=== PATIENT | male | born 1985 | race Caucasian/White ===

== ENCOUNTER 2017-10-10 10:41 | Inpatient (IN) | payer OTHER ==
--- NOTE | 2017-10-10 14:08 | HP ---
COWS - Scale Resting Pulse: 0= [place] 80 or Below Sweatin=Flushed/Facial Moisture Restless Observation: 3= Extraneous Movement Pupil Size: 2= Moderately Dilated Bone or Joint Aches: 2= Severe Diffuse Aches Runny Nose/ Eye Tearin= Runny Nose/Eyes GI Upset > 30mins: 3= Vomiting/Diarrhea Tremor Observation: 2= Slight Tremor Visible Yawning Observation: 2= >3x During Session Anxiety or Irritability: 2=Irritable/Anxious Goose Flesh Skin: 0=Smooth Skin COWS Score: 20 CIWA Score - CIWA Score Nausea/Vomitin Muscle Tremors: 3 Anxiety: 3 Agitation: 3 Paroxysmal Sweats: 1-Minimal Palms Moist Orientation: 0-Oriented Tacttile Disturbances: 2-Mild Itch/Numbness/Burn Auditory Disturbances: 2-Mild Harshness/Frighten Visual Disturbances: 2-Mild Sensitivity Headache: 2-Mild CIWA-Ar Total Score: 21 Admission ROS BHS - HPI Chief Complaint: i need help to stop using heroin,alcohol,cocaine and marijuana Allergies/Adverse Reactions: Allergies Allergy/AdvReac Type Severity Reaction Status Date / Time carbamazepine [From Tegretol] Allergy Severe Hives Verified 10/10/17 11:18 History of Present Illness: this 32 years old male with heroin,alcohol,cocaine and marijuana dependence, seeking detox,withdrawal symptom,last detox aci 3 weeks ago,not completed syncope 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 Loss EENT: reports: Tearing, Nose Congestion Respiratory: reports: No Symptoms reported Cardiac: reports: No Symptoms Reported GI: reports: Diarrhea, Nausea, Vomiting, Abdominal cramping : reports: No Symptoms Reported Musculoskeletal: reports: Back Pain, Joint Pain, Muscle Pain, Joint Stiffness Integumentary: reports: Dryness Neuro: reports: Headache, Tremors Endocrine: reports: No Symptoms Reported Hematology: reports: No Symptoms Reported Psychiatric: reports: No Sypmtoms Reported, Judgement Intact, Mood/Affect Appropiate, Orientated x3 (insomnia), Agitated, Anxious, Depressed Patient History - Patient Medical History Hx Anemia: No Hx Asthma: No Hx Chronic Obstructive Pulmonary Disease (COPD): No Hx Cancer: No Hx Cardiac Disorders: No Hx Congestive Heart Failure: No Hx Hypertension: No Hx Hypercholesterolemia: No Hx Pacemaker: No HX Cerebrovascular Accident: No Hx Seizures: No Hx Dementia: No Hx Diabetes: No Hx Gastrointestinal Disorders: No Hx Liver Disease: No Hx Genitourinary Disorders: No Hx Sexually Transmitted Disorders: No Hx Renal Disease (ESRD): No Hx Thyroid Disease: No Hx Human Immunodeficiency Virus (HIV): No (NEGATIVE HX last 02/01 ) Hx Hepatitis C: No Hx Depression: Yes (anxiety,depression,insomnia) Hx Suicide Attempt: No Hx Bipolar Disorder: No Hx Schizophrenia: No Other Medical History: no suicidal,no homicidal - Patient Surgical History Past Surgical History: No Hx Neurologic Surgery: No Hx Cataract Extraction: No Hx Cardiac Surgery: No Hx Lung Surgery: No Hx Breast Surgery: No Hx Breast Biopsy: No Hx Abdominal Surgery: No Hx Appendectomy: No Hx Cholecystectomy: No Hx Genitourinary Surgery: No Hx Section: No Hx Orthopedic Surgery: No Anesthesia Reaction: No - PPD History Previous Implant?: Yes Documented Results: Negative w/o proof Implanted On Prior R Admission?: No Date: 11/15/13 Results: 0 mm PPD to be Administered?: Yes - Smoking Cessation Smoking history: Current every day smoker Have you smoked in the past 12 months: Yes Aproximately how many cigarettes per day: 2 Cigars Per Day: 0 Hx Chewing Tobacco Use: No Initiated information on smoking cessation: Yes 'Breaking Loose' booklet given: 10/10/17 - Substance & Tx. History Hx Alcohol Use: Yes Hx Substance Use: Yes Substance Use Type: Alcohol, Cocaine, Heroin, Marijuana - Substances Abused Heroin Route: Injection Frequency: Daily Amount used: 20 BAGS Age of first use: 27 Date of Last Use: 10/09/17 Cocaine Route: Inhalation Frequency: 1-2 times per week Amount used: 2 BAGS Age of first use: 25 Date of Last Use: 10/08/17 Alcohol Route: Oral Frequency: Daily Amount used: 1-2 PINTS LIQUOR Age of first use: 21 Date of Last Use: 10/08/17 Marijuana/Hashish Route: Smoking Frequency: 1-3 times last 30 days Amount used: 20$ Age of first use: 15 Date of Last Use: 10/03/17 Family Disease History - Family Disease History Family Disease History: Diabetes: Grandparent (GM), Other: Father (DSA-RECOVERY) , Mother (HTN), Brother (DSA-RECOVERY) Admission Physical Exam [facility] - Vital Signs Vital Signs: Vital Signs - 24 hr 10/10/17 10:56 Temperature 96 F L Pulse Rate 73 Respiratory 18 Rate Blood Pressure 131/46 - Physical General Appearance: Yes: Moderate Distress, Tremorous, Sweating HEENTM: Yes: Normal ENT Inspection, CHRISTEN, Pharynx Normal Respiratory: Yes: Lungs Clear, Normal Breath Sounds, No Respiratory Distress Neck: Yes: Within Normal Limits, Supple, Trachea in good position Breast: Yes: Within Normal Limits Cardiology: Yes: Within Normal Limits, Regular Rhythm, Regular Rate, S1, S2 Abdominal: Yes: Within Normal Limits, Normal Bowel Sounds, Non Tender, Flat, Soft Genitourinary: Yes: Within Normal Limits Back: Yes: Within Normal Limits, Normal Inspection, Muscle Spasm Musculoskeletal: Yes: full range of Motion, Back pain, Joint Stiffness, Muscle Pain Extremities: Yes: Within Normal Limits, Normal Range of Motion, Tremors Neurological: Yes: knitting demonstrator II-XII NML intact, Alert, Motor Strength 5/5 Integumentary: Yes: Dry, Track Suggs (cellulitis of left elbow,erythema) - Diagnostic (1) Opioid dependence with withdrawal Current Visit: Yes Status: Acute (2) Alcohol dependence with uncomplicated withdrawal Current Visit: Yes Status: Acute (3) Syncope Current Visit: No Status: Acute (4) Weight decreased Current Visit: No Status: Acute (5) Cocaine dependence Current Visit: No Status: Chronic (6) Cannabis dependence Current Visit: Yes Status: Acute (7) Cellulitis Current Visit: Yes Status: Acute (8) Insomnia secondary to depression with anxiety Current Visit: No Status: Acute (9) IV drug user Current Visit: Yes Status: Acute (10) Dehydration Current Visit: Yes Status: Acute Cleared for Admission [facility] - Detox or Rehab [facility] Level of Care: Medically Managed Detox Regimen/Protocol: Methadone/Librium S Breath Alcohol Content Breath Alcohol Content: 0 Urine Drug Screen - Results Drug Screen Negative: No Urine Drug Screen Results: THC-Marijuana, SILVIO-Cocaine, OPI-Opiates
[2017-10-10] MEDS ORDERED: MAG HYDROX/AL HYDROX/SIMETH 30 ML UNIT-DOSE CUP PO PRN (14:27)
[2017-10-10] MEDS ORDERED: chlordiazePOXIDE HCL 25 MG CAPSULE PO PRN (14:27)
[2017-10-10] MEDS ORDERED: P-EPHED 60MG/TRIPROLIDI 2.5MG TABLET PO PRN (14:27)
[2017-10-10] MEDS ORDERED: guaiFENesin/D-METHORPHAN HB 10 ML UNIT-DOSE CUPS PO PRN (14:27)
[2017-10-10] MEDS ORDERED: LOPERAMIDE HCL 2 MG CAPSULE PO PRN (14:27)
[2017-10-10] MEDS ORDERED: MENTHOL/PHENOL 1 EACH UD MM PRN (14:27)
[2017-10-10] MEDS ORDERED: MAGNESIUM HYDROX 2400MG/30ML ORAL SUSPENSION 30 ML CUP PO PRN (14:27)
[2017-10-10] MEDS ORDERED: MAGNESIUM CITRATE 300 ML BOTTLE PO PRN (14:27)
[2017-10-10] MEDS ORDERED: ACETAMINOPHEN 325 MG TABLET (FP) PO PRN (14:27)
[2017-10-10] MEDS ORDERED: hydrOXYzine PAMOATE 50 MG CAPSULE (FP) PO PRN (14:27)
[2017-10-10] MEDS ORDERED: CYCLOBENZAPRINE HCL 10 MG TABLET (FP) PO PRN (14:33)
[2017-10-10] MEDS ORDERED: METHADONE HCL 10 MG TABLET (FOR DETOX USE ONLY) PO ONE ×2 (15:15→23:00)
[2017-10-10] MEDS ORDERED: chlordiazePOXIDE HCL 25 MG CAPSULE PO ONE (15:15)
[2017-10-10] MEDS: CEPHALEXIN MONOHYDRATE 500 MG CAPSULE (UD) PO SCH (17:37)
[2017-10-10] MEDS: IBUPROFEN 400 MG TABLET (FP) PO PRN (17:37)
[2017-10-10] MEDS: chlordiazePOXIDE HCL 25 MG CAPSULE PO SCH ×2 (17:38→22:13)
[2017-10-10 21:53] LABS: URINE APPEARANCE CLOUDY; URINE BILIRUBIN NEGATIVE (<2.0 mg/dL); URINE BLOOD NEGATIVE (NEGATIVE); URINE COLOR DKYELLOW; URINE GLUCOSE (UA) NEGATIVE (NEGATIVE); URINE KETONE TRACE (NEGATIVE); URINE LEUK ESTERASE NEGATIVE (NEGATIVE); URINE NITRITE NEGATIVE (NEGATIVE); URINE PROTEIN NEGATIVE (NEGATIVE); URINE UROBILINOGEN 4.0 E.U/dl mg/dL (0.2-1.0)
[2017-10-10] MEDS ORDERED: MELATONIN 5 MG TABLETS PO PRN (22:00)
[2017-10-10] MEDS: GABAPENTIN 400 MG CAPSULE (FP) PO SCH (22:11)
[2017-10-10] MEDS: cloNIDine HCL 0.1 MG TABLET PO SCH (22:11)
[2017-10-10] MEDS: THIAMINE HCL 100 MG TABLET (FP) PO SCH (22:11)
[2017-10-10] MEDS: BACITRACIN 0.9 GM PACKET TP SCH (23:51)
[2017-10-11] MEDS: CEPHALEXIN MONOHYDRATE 500 MG CAPSULE (UD) PO SCH ×5 (01:16→23:00)
[2017-10-11] MEDS: chlordiazePOXIDE HCL 25 MG CAPSULE PO SCH ×5 (06:04→22:06)
[2017-10-11] MEDS: IBUPROFEN 400 MG TABLET (FP) PO PRN ×2 (08:47→17:05)
[2017-10-11] MEDS: METHOCARBAMOL 500 MG TABLET PO PRN (08:47)
--- NOTE | 2017-10-11 08:47 | CONSULT ---
[facility] Psychiatric Consult - Data Date of interview: 10/11/17 Admission source: [facility] Identifying data: This is 32 years old male, single, unemployed, living at [facility], on [place], with heroin,alcohol,cocaine and marijuana dependence,seeking detox, reporting withdrawal symptoms,with history of last detox on about 3 weeks ago, was not completed Substance Abuse History: - Smoking Cessation. Smoking history: Current every day smoker. Have you smoked in the past 12 months: Yes. Aproximately how many cigarettes per day: 2. Cigars Per Day: 0. Hx Chewing Tobacco Use: No. Initiated information on smoking cessation: Yes. 'Breaking Loose' booklet given : 10/10/17. - Substance & Tx. History. Hx Alcohol Use: Yes. Hx Substance Use : Yes. Substance Use Type: Alcohol, Cocaine, Heroin, Marijuana. - Substances Abused. Heroin. Route: Injection. Frequency: Daily. Amount used: 20 BAGS. Age of first use: 27. Date of Last Use: 10/09/17. Cocaine. Route: Inhalation. Frequency: 1-2 times per week. Amount used: 2 BAGS. Age of first use: 25. Date of Last Use: 10/08/17. Alcohol. Route: Oral. Frequency: Daily. Amount used: 1-2 PINTS LIQUOR. Age of first use: 21. Date of Last Use : 10/08/17. Marijuana/Hashish. Route: Smoking. Frequency: 1-3 times last 30 days. Amount used: 20$. Age of first use: 15. Date of Last Use: 10/03/17 Medical History: Syncope, Neuropathy, wWeight loss history, Cellulitis history Psychiatric History: Denies past psychiatric history, refusing pharmacological intervention. Physical/Sexual Abuse/Trauma History: Deniues Additional Comment: Observation. Detox Unit Care Protocol Mental Status Exam - Mental Status Exam Alert and Oriented to: Person Cognitive Function: Fair Patient Appearance: Unkempt Mood: Sad Affect: Flat Patient Behavior: Sedated Speech Pattern: Delayed Voice Loudness: Mildly Soft/Quiet Thought Process: Circumstantial Thought Disorder: Being Controlled Hallucinations: Denies Suicidal Ideation: Denies Homicidal Ideation: Denies Insight/Judgement: Fair Sleep: Difficulty falling asleep Appetite: Weight loss Muscle strength/Tone: Mild Hypotonicity Gait/Station: Shuffling Additional Comments: Observation. Detox Unit Care Protocol
[2017-10-11] MEDS ORDERED: METHADONE HCL 10 MG TABLET (FOR DETOX USE ONLY) PO SCH (10:00)
[2017-10-11 10:19] LABS: HEMATOCRIT 43.3 % (35.4-49); HEMOGLOBIN 14.7 GM/dL (11.7-16.9); MCH 30.6 pg (25.7-33.7); MCHC 33.9 g/dl (32.0-35.9); MEAN CELL VOLUME 90.2 fl (80-96); PLATELET COUNT 237 K/MM3 (134-434); RDW 13.2 % (11.9-15.9); WHITE BLOOD COUNT 6.2 K/mm3 (4.0-10.0)
[2017-10-11 10:44] LABS: ALBUMIN 3.4 g/dl (3.4-5.0); ANION GAP 8 (8-16); BILIRUBIN,TOTAL 0.3 mg/dL (0.2-1.0); BLOOD UREA NITROGEN 10 mg/dL (7-18); CALCIUM 8.4 mg/dL (8.5-10.1); CHLORIDE 106 mmol/L (98-107); CO2 28 mmol/L (21-32); CREATININE 0.9 mg/dL (0.7-1.3); GLUCOSE,RANDOM 91 mg/dL (74-106); POTASSIUM 4.2 mmol/L (3.5-5.1); SGOT/AST 65 U/L (15-37); SODIUM 142 mmol/L (136-145); TOT PROT 6.6 g/dl (6.4-8.2)
[2017-10-11 10:48] LABS: ALK PHOS 66 U/L (45-117); SGPT/ALT 102 U/L (12-78)
[2017-10-11] MEDS: BACITRACIN 0.9 GM PACKET TP SCH ×2 (10:49→22:06)
[2017-10-11] MEDS: GABAPENTIN 400 MG CAPSULE (FP) PO SCH ×2 (10:49→22:06)
[2017-10-11] MEDS: PRENATAL VITAMINS W/ FOLIC ACID TABLET (FP) PO SCH (10:50)
[2017-10-11] MEDS: cloNIDine HCL 0.1 MG TABLET PO SCH ×2 (10:50→22:06)
--- NOTE | 2017-10-11 10:53 | PN ---
S CIWA - CIWA Score Nausea/Vomitin Muscle Tremors: 3 Anxiety: 3 Agitation: 2 Paroxysmal Sweats: 1-Minimal Palms Moist Orientation: 0-Oriented Tacttile Disturbances: 1-Very Mild Itch/Numbness Auditory Disturbances: 1-Very Mild Visual Disturbances: 0-None Headache: 2-Mild CIWA-Ar Total Score: 16 BHS COWS - Scale Resting Pulse: 0= [place] 80 or Below Sweatin= Chills/Flushing Restless Observation: 3= Extraneous Movement Pupil Size: 1= Pupils >than Normal Bone or Joint Aches: 2= Severe Diffuse Aches Runny Nose/ Eye Tearin= Runny Nose/Eyes GI Upset > 30mins: 3= Vomiting/Diarrhea Tremor Observation of Outstretched Hands: 2= Slight Tremor Visible Yawning Observation: 1= 1-2x During Session Anxiety or Irritability: 2=Irritable/Anxious Goose Flesh Skin: 0=Smooth Skin COWS Score: 17 BHS Progress Note (SOAP) Subjective: ALERT,IRRITABLE,ANXIOUS,INTERRUPTED SLEEP,TREMOR,PAIN IN THE BDOY AND ABCK Objective: 10/11/17 10:50 Vital Signs Temperature 97.7 F 10/11/17 10:04 Pulse Rate 76 10/11/17 10:04 Respiratory Rate 20 10/11/17 10:04 Blood Pressure 136/62 10/11/17 10:04 O2 Sat by Pulse Oximetry (%) EKG NSR,WITH SINUS ARRHYTHMIA INVERTED T IN I AND AVL Laboratory Last Values WBC 6.2 K/mm3 (4.0-10.0) 10/11/17 05:50 RBC 4.80 M/mm3 (4.00-5.60) 10/11/17 05:50 Hgb 14.7 GM/dL (11.7-16.9) D 10/11/17 05:50 Hct 43.3 % (35.4-49) 10/11/17 05:50 MCV 90.2 fl (80-96) 10/11/17 05:50 MCH 30.6 pg (25.7-33.7) 10/11/17 05:50 MCHC 33.9 g/dl (32.0-35.9) 10/11/17 05:50 RDW 13.2 % (11.9-15.9) 10/11/17 05:50 Plt Count 237 K/MM3 (134-434) 10/11/17 05:50 MPV 10.0 fl (7.5-11.1) 10/11/17 05:50 Sodium 142 mmol/L (136-145) 10/11/17 05:50 Potassium 4.2 mmol/L (3.5-5.1) 10/11/17 05:50 Chloride 106 mmol/L (98-107) 10/11/17 05:50 Carbon Dioxide 28 mmol/L (21-32) 10/11/17 05:50 Anion Gap 8 (8-16) 10/11/17 05:50 BUN 10 mg/dL (7-18) D 10/11/17 05:50 Creatinine 0.9 mg/dL (0.7-1.3) 10/11/17 05:50 Creat Clearance w eGFR > 60 (>60) 10/11/17 05:50 Random Glucose 91 mg/dL (74-106) 10/11/17 05:50 Calcium 8.4 mg/dL (8.5-10.1) L 10/11/17 05:50 Total Bilirubin 0.3 mg/dL (0.2-1.0) D 10/11/17 05:50 AST 65 U/L (15-37) H D 10/11/17 05:50 ALT 102 U/L (12-78) H D 10/11/17 05:50 Alkaline Phosphatase 66 U/L (45-117) 10/11/17 05:50 Total Protein 6.6 g/dl (6.4-8.2) 10/11/17 05:50 Albumin 3.4 g/dl (3.4-5.0) 10/11/17 05:50 Urine Color Dkyellow 10/10/17 21:45 Urine Appearance Cloudy 10/10/17 21:45 Urine pH 7.0 (5.0-8.0) D 10/10/17 21:45 Ur Specific [place] 1.025 (1.001-1.035) 10/10/17 21:45 Urine Protein Negative (NEGATIVE) 10/10/17 21:45 Urine Glucose (UA) Negative (NEGATIVE) 10/10/17 21:45 Urine Ketones Trace (NEGATIVE) H 10/10/17 21:45 Urine Blood Negative (NEGATIVE) 10/10/17 21:45 Urine Nitrite Negative (NEGATIVE) 10/10/17 21:45 Urine Bilirubin Negative (<2.0 mg/dL) 10/10/17 21:45 Urine Urobilinogen 4.0 e.u/dl mg/dL (0.2-1.0) 10/10/17 21:45 Ur Leukocyte Esterase Negative (NEGATIVE) 10/10/17 21:45 10/11/17 10:52 RPR PENDING Assessment: 10/11/17 10:52 WITHDRAWAL SYMPTOM Plan: CONTINUE DETOX
[2017-10-11] MEDS: FLUTICASONE PROP 0.05% 16 GM NASAL SPRAY NS SCH (12:13)
[2017-10-11 12:42] LABS: RPR REACTIVE 1:1 (NONREACTIVE)
--- NOTE | 2017-10-11 13:00 | EKG ---
Test Reason : Blood Pressure : / mmHG Vent. Rate : 067 BPM Atrial Rate : 067 BPM P-R Int : 108 ms QRS Dur : 084 ms QT Int : 448 ms P-R-T Axes : 000 142 140 degrees QTc Int : 473 ms SINUS RHYTHM WITH SINUS ARRHYTHMIA WITH SHORT [place] LEFT POSTERIOR FASCICULAR BLOCK NONSPECIFIC ST ABNORMALITY ABNORMAL ECG NO PREVIOUS ECGS AVAILABLE Confirmed by BECKI ARELLANO MD ([id number]) on 10/11/2017 1:00:29 PM Referred By: Confirmed By:BECKI ARELLANO MD
[2017-10-11] MEDS: NICOTINE 21 MG/24 HOURS TOPICAL PATCH TD SCH (14:41)
[2017-10-11] MEDS: NICOTINE POLACRILEX 2 MG GUM BUC PRN ×2 (14:41→23:02)
[2017-10-11 14:58] LABS: TREPONEMA ANTIBODY NON REACTIVE (NONREACTIVE)
[2017-10-11] MEDS: THIAMINE HCL 100 MG TABLET (FP) PO SCH (22:06)
[2017-10-12] MEDS: chlordiazePOXIDE HCL 25 MG CAPSULE PO SCH ×2 (05:53→10:11)
[2017-10-12] MEDS: CEPHALEXIN MONOHYDRATE 500 MG CAPSULE (UD) PO SCH ×2 (05:53→12:25)
[2017-10-12] MEDS: FLUTICASONE PROP 0.05% 16 GM NASAL SPRAY NS SCH (09:18)
[2017-10-12] MEDS ORDERED: METHADONE HCL 5 MG TABLET (FOR DETOX USE ONLY) PO SCH (10:00)
[2017-10-12] MEDS: PRENATAL VITAMINS W/ FOLIC ACID TABLET (FP) PO SCH (10:10)
[2017-10-12] MEDS: BACITRACIN 0.9 GM PACKET TP SCH (10:11)
[2017-10-12] MEDS: cloNIDine HCL 0.1 MG TABLET PO SCH (10:11)
[2017-10-12] MEDS: GABAPENTIN 400 MG CAPSULE (FP) PO SCH (10:11)
[2017-10-12] MEDS: NICOTINE 21 MG/24 HOURS TOPICAL PATCH TD SCH (10:13)
[2017-10-12] MEDS: IBUPROFEN 400 MG TABLET (FP) PO PRN (10:14)
[2017-10-12] MEDS: NICOTINE POLACRILEX 2 MG GUM BUC PRN (10:15)
[2017-10-12] MEDS: METHOCARBAMOL 500 MG TABLET PO PRN (10:26)
--- NOTE | 2017-10-12 11:32 | PN ---
S CIWA - CIWA Score Nausea/Vomitin Muscle Tremors: 3 Anxiety: 2 Agitation: 2 Paroxysmal Sweats: 1-Minimal Palms Moist Orientation: 0-Oriented Tacttile Disturbances: 1-Very Mild Itch/Numbness Auditory Disturbances: 1-Very Mild Visual Disturbances: 0-None Headache: 2-Mild CIWA-Ar Total Score: 15 BHS COWS - Scale Resting Pulse: 1= [place] 81-100 Sweatin= Chills/Flushing Restless Observation: 3= Extraneous Movement Pupil Size: 1= Pupils >than Normal Bone or Joint Aches: 2= Severe Diffuse Aches Runny Nose/ Eye Tearin= Nasal Congestion GI Upset > 30mins: 2= Nausea/Diarrhea Tremor Observation of Outstretched Hands: 2= Slight Tremor Visible Yawning Observation: 1= 1-2x During Session Anxiety or Irritability: 2=Irritable/Anxious Goose Flesh Skin: 0=Smooth Skin COWS Score: 16 BHS Progress Note (SOAP) Subjective: ALERT,IRRITABLE,ANXIOUS,INTERRUPTED SLEEP,TREMOR,PAIN IN THE BODY AND BACK Objective: 10/12/17 11:30 Vital Signs Temperature 96.4 F L 10/12/17 10:00 Pulse Rate 81 10/12/17 10:00 Respiratory Rate 18 10/12/17 10:00 Blood Pressure 133/59 10/12/17 10:00 O2 Sat by Pulse Oximetry (%) Laboratory Last Values WBC 6.2 K/mm3 (4.0-10.0) 10/11/17 05:50 RBC 4.80 M/mm3 (4.00-5.60) 10/11/17 05:50 Hgb 14.7 GM/dL (11.7-16.9) D 10/11/17 05:50 Hct 43.3 % (35.4-49) 10/11/17 05:50 MCV 90.2 fl (80-96) 10/11/17 05:50 MCH 30.6 pg (25.7-33.7) 10/11/17 05:50 MCHC 33.9 g/dl (32.0-35.9) 10/11/17 05:50 RDW 13.2 % (11.9-15.9) 10/11/17 05:50 Plt Count 237 K/MM3 (134-434) 10/11/17 05:50 MPV 10.0 fl (7.5-11.1) 10/11/17 05:50 Sodium 142 mmol/L (136-145) 10/11/17 05:50 Potassium 4.2 mmol/L (3.5-5.1) 10/11/17 05:50 Chloride 106 mmol/L (98-107) 10/11/17 05:50 Carbon Dioxide 28 mmol/L (21-32) 10/11/17 05:50 Anion Gap 8 (8-16) 10/11/17 05:50 BUN 10 mg/dL (7-18) D 10/11/17 05:50 Creatinine 0.9 mg/dL (0.7-1.3) 10/11/17 05:50 Creat Clearance w eGFR > 60 (>60) 10/11/17 05:50 Random Glucose 91 mg/dL (74-106) 10/11/17 05:50 Calcium 8.4 mg/dL (8.5-10.1) L 10/11/17 05:50 Total Bilirubin 0.3 mg/dL (0.2-1.0) D 10/11/17 05:50 AST 65 U/L (15-37) H D 10/11/17 05:50 ALT 102 U/L (12-78) H D 10/11/17 05:50 Alkaline Phosphatase 66 U/L (45-117) 10/11/17 05:50 Total Protein 6.6 g/dl (6.4-8.2) 10/11/17 05:50 Albumin 3.4 g/dl (3.4-5.0) 10/11/17 05:50 Urine Color Dkyellow 10/10/17 21:45 Urine Appearance Cloudy 10/10/17 21:45 Urine pH 7.0 (5.0-8.0) D 10/10/17 21:45 Ur Specific [place] 1.025 (1.001-1.035) 10/10/17 21:45 Urine Protein Negative (NEGATIVE) 10/10/17 21:45 Urine Glucose (UA) Negative (NEGATIVE) 10/10/17 21:45 Urine Ketones Trace (NEGATIVE) H 10/10/17 21:45 Urine Blood Negative (NEGATIVE) 10/10/17 21:45 Urine Nitrite Negative (NEGATIVE) 10/10/17 21:45 Urine Bilirubin Negative (<2.0 mg/dL) 10/10/17 21:45 Urine Urobilinogen 4.0 e.u/dl mg/dL (0.2-1.0) 10/10/17 21:45 Ur Leukocyte Esterase Negative (NEGATIVE) 10/10/17 21:45 RPR Titer Reactive 1:1 (NONREACTIVE) H 10/11/17 05:50 T.pallidum Ab (MHA) Non reactive (NONREACTIVE) 10/11/17 05:50 PATIENT HAS HISTORY OF SYPHILIS BEFORE Assessment: 10/12/17 11:31 WITHDRAWAL SYMPTOM Plan: CONTINUE DETOX
[2017-10-12 14:11] VITALS: BP 94/56; PULSE 99; TEMP 97.7
--- NOTE | 2017-10-12 15:08 | PN ---
[facility] Progress Note Note: PATIENT DID NOT WANT TO COMPLETE TREATMENT,SIGNED RELEASE AMA,SEEN BY COUNSELOR, DID NOT WANT TO WAIT
--- NOTE | 2017-10-12 15:13 | DS ---
[facility] Detox Discharge Summary Admission Date: 10/10/17 Discharge Date: 10/12/17 - History Present History: Alcohol Dependence, Cannabis Dependence, Cocaine Dependence, Opioid Dependence Additional Comments: PATIENT DID NOT WANT TO COMPLETE TREATMENT,SIGNED RELEASE AMA,DID NOT WANT TO WAIT - Physical Exam Results Vital Signs: Vital Signs Temperature 97.7 F 10/12/17 14:11 Pulse Rate 99 H 10/12/17 14:11 Respiratory Rate 16 10/12/17 14:11 Blood Pressure 94/56 10/12/17 14:11 O2 Sat by Pulse Oximetry (%) Pertinent Admission Physical Exam Findings: WITHDRAWAL SIGNS AND SYMPTOM Vital Signs Temperature 97.7 F 10/12/17 14:11 Pulse Rate 99 H 10/12/17 14:11 Respiratory Rate 16 10/12/17 14:11 Blood Pressure 94/56 10/12/17 14:11 O2 Sat by Pulse Oximetry (%) Laboratory Last Values WBC 6.2 K/mm3 (4.0-10.0) 10/11/17 05:50 RBC 4.80 M/mm3 (4.00-5.60) 10/11/17 05:50 Hgb 14.7 GM/dL (11.7-16.9) D 10/11/17 05:50 Hct 43.3 % (35.4-49) 10/11/17 05:50 MCV 90.2 fl (80-96) 10/11/17 05:50 MCH 30.6 pg (25.7-33.7) 10/11/17 05:50 MCHC 33.9 g/dl (32.0-35.9) 10/11/17 05:50 RDW 13.2 % (11.9-15.9) 10/11/17 05:50 Plt Count 237 K/MM3 (134-434) 10/11/17 05:50 MPV 10.0 fl (7.5-11.1) 10/11/17 05:50 Sodium 142 mmol/L (136-145) 10/11/17 05:50 Potassium 4.2 mmol/L (3.5-5.1) 10/11/17 05:50 Chloride 106 mmol/L (98-107) 10/11/17 05:50 Carbon Dioxide 28 mmol/L (21-32) 10/11/17 05:50 Anion Gap 8 (8-16) 10/11/17 05:50 BUN 10 mg/dL (7-18) D 10/11/17 05:50 Creatinine 0.9 mg/dL (0.7-1.3) 10/11/17 05:50 Creat Clearance w eGFR > 60 (>60) 10/11/17 05:50 Random Glucose 91 mg/dL (74-106) 10/11/17 05:50 Calcium 8.4 mg/dL (8.5-10.1) L 10/11/17 05:50 Total Bilirubin 0.3 mg/dL (0.2-1.0) D 10/11/17 05:50 AST 65 U/L (15-37) H D 10/11/17 05:50 ALT 102 U/L (12-78) H D 10/11/17 05:50 Alkaline Phosphatase 66 U/L (45-117) 10/11/17 05:50 Total Protein 6.6 g/dl (6.4-8.2) 10/11/17 05:50 Albumin 3.4 g/dl (3.4-5.0) 10/11/17 05:50 Urine Color Dkyellow 10/10/17 21:45 Urine Appearance Cloudy 10/10/17 21:45 Urine pH 7.0 (5.0-8.0) D 10/10/17 21:45 Ur Specific [place] 1.025 (1.001-1.035) 10/10/17 21:45 Urine Protein Negative (NEGATIVE) 10/10/17 21:45 Urine Glucose (UA) Negative (NEGATIVE) 10/10/17 21:45 Urine Ketones Trace (NEGATIVE) H 10/10/17 21:45 Urine Blood Negative (NEGATIVE) 10/10/17 21:45 Urine Nitrite Negative (NEGATIVE) 10/10/17 21:45 Urine Bilirubin Negative (<2.0 mg/dL) 10/10/17 21:45 Urine Urobilinogen 4.0 e.u/dl mg/dL (0.2-1.0) 10/10/17 21:45 Ur Leukocyte Esterase Negative (NEGATIVE) 10/10/17 21:45 RPR Titer Reactive 1:1 (NONREACTIVE) H 10/11/17 05:50 T.pallidum Ab (MHA) Non reactive (NONREACTIVE) 10/11/17 05:50 - Medication Discharge Medications: Ambulatory Orders Gabapentin [Neurontin] 800 mg PO BID 05/25/14 - Diagnosis (1) Opioid dependence with withdrawal Current Visit: Yes Status: Acute (2) Alcohol dependence with uncomplicated withdrawal Current Visit: Yes Status: Acute (3) Syncope Current Visit: No Status: Acute (4) Weight decreased Current Visit: No Status: Acute (5) Cocaine dependence Current Visit: No Status: Chronic (6) Cannabis dependence Current Visit: Yes Status: Acute (7) Cellulitis Current Visit: Yes Status: Acute Qualifiers: Site of cellulitis of extremity: upper extremity Laterality: left (8) Insomnia secondary to depression with anxiety Current Visit: No Status: Acute (9) IV drug user Current Visit: Yes Status: Acute (10) Dehydration Current Visit: Yes Status: Acute - AMA Did Patient Leave Against Medical Advice: Yes
[2017-10-12] MEDS ORDERED: chlordiazePOXIDE 5 MG CAPSULE PO SCH (17:00)
[2017-10-12] MEDS ORDERED: TOLNAFTATE 1% CREAM 15 GM TUBE TP SCH (22:00)
[2017-10-13] MEDS ORDERED: chlordiazePOXIDE HCL 10 MG CAPSULE PO SCH (17:00)
[2017-10-14] MEDS ORDERED: METHADONE HCL 10 MG TABLET (FOR DETOX USE ONLY) PO SCH (10:00)
[2017-10-15] MEDS ORDERED: METHADONE HCL 5 MG TABLET (FOR DETOX USE ONLY) PO SCH (06:00)
== END 2017-10-12 03:20 | disposition left against medical advice (07) | DRG 770 ==
LOC: YASAS 10:41 → Y6N 14:49
PROVIDERS: ADMIT Internal Medicine; ATTEND Internal Medicine
PROC: HZ2ZZZZ Detoxification Services for Substance Abuse Treatment (ICD-10-PCS; principal; 2017-10-10)
DX: F10.230 Alcohol dependence with withdrawal, uncomplicated (principal); F11.23 Opioid dependence with withdrawal; F14.20 Cocaine dependence, uncomplicated; F12.20 Cannabis dependence, uncomplicated; F17.210 Nicotine dependence, cigarettes, uncomplicated; F32.9 Major depressive disorder, single episode, unspecified; F41.9 Anxiety disorder, unspecified; F51.05 Insomnia due to other mental disorder; E86.0 Dehydration; G62.9 Polyneuropathy, unspecified; G47.00 Insomnia, unspecified; R55 Syncope and collapse
CPT/HCPCS: 36415; 80053; 81003; 85027; 86593; 86780; 93005; 93010; J0735

== ENCOUNTER 2018-09-09 14:05 | Inpatient (IN) | payer OTHER ==
[2018-09-09 17:06] VITALS: BMI 21.1
--- NOTE | 2018-09-09 21:30 | HP ---
"CIWA Score Nausea/Vomitin Muscle Tremors: 4-Moderate,w/Arms Extend Anxiety: 1-Mildly Anxious Agitation: 1-Slight > Activity Paroxysmal Sweats: 3 (Increased facial moisture) Orientation: 1-Uncertain about Date Tacttile Disturbances: 0-None Auditory Disturbances: 0-None Visual Disturbances: 0-None Headache: 0-None Present CIWA-Ar Total Score: 13 - Admission Criteria OAS Guidelines: Admission for Medically Managed Detox: Requires at least one of the followin. CIWA greater than 12 2. Seizures within the past 24 hours 3. Delirium tremens within the past 24 hours 4. Hallucinations within the past 24 hours 5. Acute intervention needed for co occurring medical disorder 6. Acute intervention needed for co occurring psychiatric disorder 7. Severe withdrawal that cannot be handled at a lower level of care (continued vomiting, continued diarrhea, abnormal vital signs) requiring intravenous medication and/or fluids 8. Patient presents the following: CIWA greater than 12 Admission Criteria Met: Admission criteria met Admission ROS [facility] Chief Complaint: Here with xanax, klonopin, opioid withdrawal. Allergies/Adverse Reactions: Allergies Allergy/AdvReac Type Severity Reaction Status Date / Time carbamazepine [From Tegretol] Allergy Severe Hives Verified 09/09/18 22:37 History of Present Illness: Here for detox. I need to get clean. Heroin use began at age 26. IV use. Denies sharing needles or works. Currently on [facility] MMTP. Methadone dose is 130 mg PO daily. States last medicated 09/09/18. Stae has been o program One and a half months. Cocaine use began at age 25. Xanax/Klonopin use began at age [age] Marijuana use began at age 13. Alcohol use began at age 22. Nicotine use began at age 18. Hx: blackouts. Overdoses - states last 4 days prior to admission. Has Narcan kit at home. Denies seizures. PMHx: Intermittent SOB, neuropathic arthritis pain in back and legs MHHx: Anxiety, depression, insomnia, occ hears voices. Denies thoughts of harming self or others. States was on Wellbutrin - states last took about 1-2 weeks ago. The Drug Utilization Report below displays all of the controlled substance prescriptions, if any, that your patient has filled in the last twelve months. The information displayed on this report is compiled from pharmacy submissions to the Department, and accurately reflects the information as submitted by the pharmacies. This report was requested by: Nava Ruby | Reference #: [id number] There are no results for the search terms that you entered. Exam Limitations: No Limitations - Ebola screening Have you traveled outside of the country in the last 21 days: No Have you had contact with anyone from an Ebola affected area: No Have you been sick,other than usual withdrawal symptoms: No Do you have a fever: No - Review of Systems Constitutional: Chills, Diaphoresis, Changes in sleep (Difficulty falling and staying asleep - used to take Ambien) EENT: reports: Nose Congestion Respiratory: reports: Shortness of Breath (Intermittent - used someone elses MDI 2-3 months ago.) Cardiac: reports: No Symptoms Reported GI: reports: Nausea, Vomiting : reports: No Symptoms Reported Musculoskeletal: reports: Back Pain (Low back pain - intermittent x 1 year - states relieved w/ Mobic 7.5 mg. No pain at this time.) Integumentary: reports: No Symptoms Reported Neuro: reports: Tremors Endocrine: reports: Increased Thirst Hematology: reports: No Symptoms Reported Psychiatric: reports: Judgement Intact, Orientated x3 (Missed day by one), Agitated, Anxious, Depressed (Denies thoughts of harming self or others.) Patient History - Patient Medical History Hx Anemia: No Hx Asthma: No Hx Chronic Obstructive Pulmonary Disease (COPD): No Hx Cancer: No Hx Cardiac Disorders: No Hx Congestive Heart Failure: No Hx Hypertension: No Hx Hypercholesterolemia: No Hx Pacemaker: No HX Cerebrovascular Accident: No Hx Seizures: No Hx Dementia: No Hx Diabetes: No Hx Gastrointestinal Disorders: No Hx Liver Disease: No Hx Genitourinary Disorders: No Hx Sexually Transmitted Disorders: No Hx Renal Disease (ESRD): No Hx Thyroid Disease: No Hx Human Immunodeficiency Virus (HIV): No (NEGATIVE HX last 02/01 ) Hx Hepatitis C: No Hx Depression: Yes (anxiety,depression,insomnia) Hx Suicide Attempt: No Hx Bipolar Disorder: No Hx Schizophrenia: No - Patient Surgical History Past Surgical History: No Hx Neurologic Surgery: No Hx Cataract Extraction: No Hx Cardiac Surgery: No Hx Lung Surgery: No Hx Breast Surgery: No Hx Breast Biopsy: No Hx Abdominal Surgery: No Hx Appendectomy: No Hx Cholecystectomy: No Hx Genitourinary Surgery: No Hx Section: No Hx Orthopedic Surgery: No Anesthesia Reaction: No - PPD History Previous Implant?: Yes Documented Results: Negative w/proof Implanted On Prior [facility] Admission?: Yes Date: 10/12/17 Results: 0 mm PPD to be Administered?: No - Smoking Cessation Smoking history: Current every day smoker Have you smoked in the past 12 months: Yes Aproximately how many cigarettes per day: 5 Cigars Per Day: 0 Hx Chewing Tobacco Use: No Initiated information on smoking cessation: Yes 'Breaking Loose' booklet given: 09/09/18 - Substance & Tx. History Hx Alcohol Use: Yes Hx Substance Use: Yes Substance Use Type: Alcohol, Cocaine, Heroin, Marijuana, Opiates, Prescribed Hx Substance Use Treatment: Yes (detox, rehab, Currently on a MMTP) - Substances Abused Heroin Route: Injection Frequency: Daily Amount used: 30 BAGS Age of first use: 27 Date of Last Use: 09/09/18 Benzodiazepine (Klonopin) Amount used: 6/2MG Age of first use: 29 Date of Last Use: 09/09/18 Alprazolam (Xanax) Route: Oral Frequency: Daily Amount used: 4/8MG Age of first use: 30 Date of Last Use: 09/09/18 Marijuana/Hashish Route: Inhalation Frequency: 1-2 times per week Age of first use: 13 Cocaine Route: Smoking Frequency: Daily Age of first use: 25 Alcohol Route: Oral Amount used: 3 -32 oz/day Age of first use: 22 Family Disease History - Family Disease History Family Disease History: Diabetes: Grandparent (GM), Other: Father (DSA-RECOVERY) , Mother (HTN), Brother (DSA-RECOVERY) Admission Physical Exam BHS - Vital Signs Vital Signs: Vital Signs - 24 hr 09/09/18 17:03 Temperature 97.7 F Pulse Rate 63 Respiratory 18 Rate Blood Pressure 98/60 - Physical General Appearance: Yes: Nourished, Appropriately Dressed, Mild Distress, Tremorous, Sweating (ncreased facial moisture), Anxious HEENTM: Yes: EOMI, Hearing grossly Normal, Normocephalic, Normal Voice, CHRISTEN ( Pupils = 3 mm), Pharynx Normal Respiratory: Yes: Lungs Clear, Normal Breath Sounds, No Respiratory Distress Neck: Yes: No masses,lesions,Nodules, Supple Breast: Yes: Breast Exam Deferred Cardiology: Yes: Regular Rhythm, Regular Rate, S1, S2 Abdominal: Yes: Flat, Soft, Increased Bowel Sounds, Tenderness (Mid-epigastric tenderness upon palpation. No guarding no rebound.) Genitourinary: Yes: Within Normal Limits Back: Yes: Normal Inspection Musculoskeletal: Yes: full range of Motion, Gait Steady Extremities: Yes: Normal Capillary Refill, Normal Range of Motion, Tremors Neurological: Yes: special agent group insurance II-XII NML intact, Alert, Motor Strength 5/5 Integumentary: Yes: Normal Color, Warm, Track Aragon (Old an new track aragon both antecubital areas. No increased erythema, warmth or tenderness in areas.) Lymphatic: Yes: Within Normal Limits - Diagnostic (1) Cocaine dependence, uncomplicated Current Visit: Yes Status: Chronic (2) Sedative, hypnotic or anxiolytic dependence with withdrawal, uncomplicated Current Visit: Yes Status: Acute (3) Cannabis dependence Current Visit: Yes Status: Chronic (4) Methadone maintenance therapy patient Current Visit: Yes Status: Chronic (5) Nicotine dependence Current Visit: Yes Status: Chronic Qualifiers: Nicotine product type: cigarettes Substance use status: uncomplicated Qualified Code(s): F17.210 - Nicotine dependence, cigarettes, uncomplicated (6) Alcohol abuse Current Visit: Yes Status: Chronic (7) Neuropathic arthritis Current Visit: Yes Status: Chronic (8) Epigastric abdominal pain Current Visit: Yes Status: Acute Comment: No rebound. No guarding (9) Opioid use disorder Current Visit: Yes Status: Chronic Comment: Continues to relapse w/ illicit opiates Cleared for Admission [facility] - Detox or Rehab [facility] Level of Care: Medically Managed Detox Regimen/Protocol: Valium [facility] Breath Alcohol Content Breath Alcohol Content: 0 Urine Drug Screen - Results Drug Screen Negative: No Urine Drug Screen Results: THC-Marijuana, SILVIO-Cocaine, OPI-Opiates, AMP- Amphetamines, MET-Methamphetamine, BZO-Benzodiazepines, MTD-Methadone, FEN- Fentanyl Inpatient Rehab Admission - Rehab Decision to Admit Inpatient rehab admission?: No"
[2018-09-10] MEDS ORDERED: diazePAM 5 MG TABLET PO PRN (00:03)
[2018-09-10] MEDS ORDERED: diazePAM 5 MG TABLET PO ONE (00:03)
[2018-09-10] MEDS ORDERED: guaiFENesin 200 MG/10 ML 10 ML UNIT-DOSE CUPS PO PRN (00:04)
[2018-09-10] MEDS ORDERED: MAGNESIUM HYDROX 2400MG/30ML ORAL SUSPENSION 30 ML CUP PO PRN (00:04)
[2018-09-10] MEDS ORDERED: ACETAMINOPHEN 325 MG TABLET (FP) PO PRN ×2 (00:04)
[2018-09-10] MEDS ORDERED: MAG HYDROX/AL HYDROX/SIMETH 30 ML UNIT-DOSE CUP PO PRN (00:04)
[2018-09-10] MEDS ORDERED: BISMUTH SUBSALICYLATE 524 MG/30 ML UD PO PRN (00:04)
[2018-09-10] MEDS ORDERED: PROCHLORPERAZINE MALEATE 5 MG TABLET PO PRN (00:04)
[2018-09-10] MEDS ORDERED: MENTHOL/PHENOL 1 EACH UD MM PRN (00:04)
[2018-09-10] MEDS ORDERED: IBUPROFEN 400 MG TABLET (FP) PO PRN (00:04)
[2018-09-10] MEDS ORDERED: MAGNESIUM CITRATE 300 ML BOTTLE PO PRN (00:04)
[2018-09-10] MEDS ORDERED: METHOCARBAMOL 500 MG TABLET PO PRN (00:04)
[2018-09-10] MEDS ORDERED: ALBUTEROL SO4 0.083% IH SOL 2.5 MG/3 ML VIAL.NEB. NEB PRN (00:38)
[2018-09-10] MEDS: PANTOPRAZOLE 20 MG TABLET (FP) PO SCH ×3 (01:14→22:38)
[2018-09-10] MEDS: diazePAM 5 MG TABLET PO SCH ×3 (06:03→22:38)
[2018-09-10] MEDS ORDERED: METHADONE HCL 10 MG TABLET ONE (09:32)
[2018-09-10] MEDS ORDERED: METHADONE HCL 40 MG DISPERSABLE TABLET ONE (09:32)
[2018-09-10] MEDS ORDERED: METHADONE HCL 10 MG TABLET PO ONE (10:00)
[2018-09-10] MEDS ORDERED: METHADONE 120 MG, METHADONE 10 MG PO ONE (10:00)
[2018-09-10] MEDS: PRENATAL VITAMINS W/ FOLIC ACID TABLET (FP) PO SCH (10:03)
[2018-09-10] MEDS: GABAPENTIN 400 MG CAPSULE (FP) PO SCH ×2 (10:03→22:38)
--- NOTE | 2018-09-10 12:07 | CONSULT ---
[facility] Psychiatric Consult - Data Date of interview: 09/10/18 Admission source: [facility] Identifying data: This is one of multiple admissions to [facility] for this 33 y/ o male self-referred for detoxification (xanax, alcohol, cocaine, cannabis, heroin, methamphetamine). Examined at [address] [place] [address]. Patient is single, no chidren, homeless, unemployed and supported on welfare. Substance Abuse History: Confirmed by the patient in this interview. Details inc current [facility] report as follows : Smoking history: Current every day smoker. Have you smoked in the past 12 months: Yes. Aproximately how many cigarettes per day: 5. Cigars Per Day: 0. Hx Chewing Tobacco Use: No. Initiated information on smoking cessation: Yes. 'Breaking Loose' booklet given: . - Substance & Tx. History. Hx Alcohol Use: Yes. Hx Substance Use: Yes. Substance Use Type: Alcohol, Cocaine, Heroin, Marijuana, Opiates, Prescribed. Hx Substance Use Treatment: Yes (detox, rehab, Currently on a MMTP). - Substances Abused. Heroin. Route: Injection. Frequency: Daily. Amount used: 30 BAGS. Age of first use: 27. Date of Last Use: 09/09/18. Benzodiazepine (Klonopin). Amount used: 6/2MG. Age of first use: 29. Date of Last Use: 09/09/18. Alprazolam (Xanax). Route: Oral. Frequency: Daily. Amount used: 4/8MG. Age of first use: 30. Date of Last Use: 09/09/18. Marijuana/Hashish. Route: Inhalation. Frequency: 1-2 times per week. Age of first use: 13. Cocaine. Route: Smoking. Frequency: Daily. Age of first use: 25. Alcohol. Route: Oral. Amount used: 3 -32 oz/day. Age of first use: 22 Medical History: Remarkable for past treatment for syphilis, neuropathic arthritis and chronic lumbar pain. Psychiatric History: Patient denies history of psychiatric hospitalizations. Admits to frequent CPEP visits at [facility]. Diagnosed with ADHD, YANG and Schizoaffective Disorder. Onset of psychiatric disturbances : age [age]. Medications are reported to be wellbutrin XL 450 mg/day + zoloft 25 mg/day ( used to be on lithium). Chronically non-adherent to psychiatric aftercare.Mr Trace gets his outpatient psychiatric services at the [facility] clinic in [facility]. He is also on [facility] ([facility] [place]. Attends daily sessions at the [facility] in [facility]. Patient endorses a history of two suicide attempts via deliberate jump into the path of an oncoming city bus + overdose with heroin. Most recent suicide attempt (overdose) occurred in 2017. Physical/Sexual Abuse/Trauma History: Patient denies. Additional Comment: Urine Drug Screen Results: THC-Marijuana, SILVIO-Cocaine, OPI- Opiates, AMP-Amphetamines, MET-Methamphetamine, BZO-Benzodiazepines, MTD- Methadone, FEN-Fentanyl. Noted. Mental Status Exam - Mental Status Exam Alert and Oriented to: Time, Place, Person Cognitive Function: Impaired (moderately sedated but able to provide some personal information) Patient Appearance: Unkempt, Disheveled Mood: Nervous, Withdrawn, Anxious, Irritable Affect: Mood Congruent, Constricted Patient Behavior: Sedated, Fatigued, Cooperative (superficially cooperative) Speech Pattern: Delayed, Slurred Voice Loudness: Moderately Soft/Quiet Thought Process: Disorganized Thought Disorder: Bizarre Hallucinations: Denies Suicidal Ideation: Denies Homicidal Ideation: Denies Insight/Judgement: Poor Sleep: Well Appetite: Fair Muscle strength/Tone: Normal Gait/Station: Other (slow and unsteady gait) Psychiatric Findings - Problem List ([place] 1, 2,3) (1) Sedated Current Visit: Yes Status: Acute (2) Opioid dependence with withdrawal Current Visit: Yes Status: Acute (3) Sedative, hypnotic or anxiolytic dependence with withdrawal, uncomplicated Current Visit: Yes Status: Acute (4) Cocaine dependence Current Visit: Yes Status: Chronic (5) Cannabis dependence Current Visit: Yes Status: Chronic (6) Nicotine dependence Current Visit: Yes Status: Chronic Qualifiers: Nicotine product type: cigarettes Substance use status: uncomplicated Qualified Code(s): F17.210 - Nicotine dependence, cigarettes, uncomplicated (7) History of ADHD Current Visit: Yes Status: Chronic (8) History of schizoaffective disorder Current Visit: Yes Status: Chronic (9) Substance induced mood disorder Current Visit: Yes Status: Chronic - Initial Treatment Plan Initial Treatment Plan: Psychoeducation when the patient is fully awake. Sleep hygiene. Detoxification. Support. Will hold wellbutrin at this time in view of current sedated state. Falls precautions. Observation.
[2018-09-10 12:35] LABS: HEMATOCRIT 39.5 % (35.4-49); HEMOGLOBIN 13.4 GM/dL (11.7-16.9); MCH 30.3 pg (25.7-33.7); MCHC 33.9 g/dl (32.0-35.9); MEAN CELL VOLUME 89.4 fl (80-96); PLATELET COUNT 175 K/MM3 (134-434); RBC 4.42 M/mm3 (4.00-5.60); RDW 14.1 % (11.9-15.9); WHITE BLOOD COUNT 3.7 K/mm3 (4.0-10.0)
[2018-09-10 12:36] LABS: ALBUMIN 2.8 g/dl (3.4-5.0); ALK PHOS 73 U/L (45-117); ANION GAP 7 MMOL/L (8-16); BILIRUBIN,TOTAL 0.1 mg/dL (0.2-1); BLOOD UREA NITROGEN 18 mg/dL (7-18); CHLORIDE 107 mmol/L (98-107); CO2 27 mmol/L (21-32); CREATININE 0.9 mg/dL (0.55-1.3); GLUCOSE,RANDOM 96 mg/dL (74-106); SGOT/AST 16 U/L (15-37); SGPT/ALT 24 U/L (13-61); SODIUM 142 mmol/L (136-145); TOT PROT 5.4 g/dl (6.4-8.2)
[2018-09-10 12:38] LABS: RPR REACTIVE 1:1 (NONREACTIVE)
[2018-09-10 14:32] LABS: TREPONEMA ANTIBODY NON REACTIVE (NONREACTIVE)
[2018-09-10 15:23] LABS: URINE APPEARANCE CLEAR; URINE BILIRUBIN NEGATIVE (NEGATIVE); URINE COLOR YELLOW; URINE GLUCOSE (UA) NEGATIVE (NEGATIVE); URINE KETONE NEGATIVE (NEGATIVE); URINE LEUK ESTERASE NEGATIVE (NEGATIVE); URINE NITRITE NEGATIVE (NEGATIVE); URINE PROTEIN NEGATIVE (NEGATIVE)
[2018-09-10] MEDS ORDERED: BUDESONIDE/FORMETEROL FUMARATE 80/4.5 mcg INHALER IH SCH ×3 (15:26→22:00)
--- NOTE | 2018-09-10 15:27 | PN ---
[facility] CIWA - CIWA Score Nausea/Vomitin-No Nausea/No Vomiting Muscle Tremors: 2 Anxiety: 3 Agitation: 2 Paroxysmal Sweats: 1-Minimal Palms Moist Orientation: 1-Uncertain about Date Tacttile Disturbances: 0-None Auditory Disturbances: 0-None Visual Disturbances: 0-None Headache: 0-None Present CIWA-Ar Total Score: 9 S Progress Note (SOAP) Subjective: wheezing tightness of chest wheezing bilaterally nebulizer x 1 feel better begin claritin and cymbicort Objective: 09/10/18 15:27 Vital Signs Temperature 96.2 F L 09/10/18 13:19 Pulse Rate 68 09/10/18 13:19 Respiratory Rate 18 09/10/18 13:19 Blood Pressure 125/70 09/10/18 13:19 O2 Sat by Pulse Oximetry (%) Laboratory Last Values WBC 3.7 K/mm3 (4.0-10.0) L 09/10/18 07:30 RBC 4.42 M/mm3 (4.00-5.60) 09/10/18 07:30 Hgb 13.4 GM/dL (11.7-16.9) 09/10/18 07:30 Hct 39.5 % (35.4-49) 09/10/18 07:30 MCV 89.4 fl (80-96) 09/10/18 07:30 MCH 30.3 pg (25.7-33.7) 09/10/18 07:30 MCHC 33.9 g/dl (32.0-35.9) 09/10/18 07:30 RDW 14.1 % (11.9-15.9) 09/10/18 07:30 Plt Count 175 K/MM3 (134-434) D 09/10/18 07:30 MPV 11.0 fl (7.5-11.1) 09/10/18 07:30 Sodium 142 mmol/L (136-145) 09/10/18 07:30 Potassium 4.0 mmol/L (3.5-5.1) 09/10/18 07:30 Chloride 107 mmol/L (98-107) 09/10/18 07:30 Carbon Dioxide 27 mmol/L (21-32) 09/10/18 07:30 Anion Gap 7 MMOL/L (8-16) L 09/10/18 07:30 BUN 18 mg/dL (7-18) 09/10/18 07:30 Creatinine 0.9 mg/dL (0.55-1.3) 09/10/18 07:30 Creat Clearance w eGFR 97.18 (>60) 09/10/18 07:30 Random Glucose 96 mg/dL (74-106) 09/10/18 07:30 Calcium 8.0 mg/dL (8.5-10.1) L 09/10/18 07:30 Total Bilirubin 0.1 mg/dL (0.2-1) L 09/10/18 07:30 AST 16 U/L (15-37) 09/10/18 07:30 ALT 24 U/L (13-61) 09/10/18 07:30 Alkaline Phosphatase 73 U/L (45-117) 09/10/18 07:30 Total Protein 5.4 g/dl (6.4-8.2) L 09/10/18 07:30 Albumin 2.8 g/dl (3.4-5.0) L 09/10/18 07:30 RPR Titer Reactive 1:1 (NONREACTIVE) H 09/10/18 07:30 T.pallidum Ab (MHA) Non reactive (NONREACTIVE) 09/10/18 07:30 lab noted Assessment: 09/10/18 15:28 benzo withdrawal sx 09/10/18 15:28 Plan: continue detox
[2018-09-10] MEDS: NICOTINE POLACRILEX 2 MG GUM BUC PRN (15:45)
[2018-09-10] MEDS ORDERED: MOMETASONE FUROATE 110 MCG/IH INHALER IH ONE (16:00)
[2018-09-10] MEDS: LORATADINE 10 MG TABLET PO SCH (17:54)
[2018-09-10] MEDS: ALBUTEROL SO4 0.083% IH SOL 2.5 MG/3 ML VIAL.NEB. NEB SCH ×2 (17:56→21:38)
--- NOTE | 2018-09-10 21:47 | EKG ---
Test Reason : Blood Pressure : / mmHG Vent. Rate : 048 BPM Atrial Rate : 048 BPM P-R Int : 126 ms QRS Dur : 096 ms QT Int : 460 ms P-R-T Axes : 046 082 056 degrees QTc Int : 410 ms SINUS BRADYCARDIA OTHERWISE NORMAL ECG WHEN COMPARED WITH ECG OF 10-OCT-2017 16:10, ST NO LONGER DEPRESSED IN LATERAL LEADS QT HAS SHORTENED Confirmed by MD CHRISTAL, ILANA ([id number]) on 09/10/2018 9:46:49 PM Referred By: REESE MONTERROSO Confirmed By:ILANA SIEGEL MD
[2018-09-10] MEDS: THIAMINE HCL 100 MG TABLET (FP) PO SCH (22:37)
[2018-09-10] MEDS: MELATONIN 5 MG TABLETS PO PRN (22:55)
[2018-09-11] MEDS ORDERED: METHADONE HCL 40 MG DISPERSABLE TABLET ONE (04:05)
[2018-09-11] MEDS ORDERED: METHADONE HCL 10 MG TABLET ONE (04:05)
[2018-09-11] MEDS: METHADONE 120 MG, METHADONE 10 MG PO SCH (05:52)
[2018-09-11] MEDS: diazePAM 5 MG TABLET PO SCH ×2 (05:53→17:55)
[2018-09-11] MEDS ORDERED: METHADONE HCL 10 MG TABLET PO SCH (06:00)
[2018-09-11] MEDS: NICOTINE POLACRILEX 2 MG GUM BUC PRN ×2 (06:28→12:34)
[2018-09-11] MEDS: ALBUTEROL SO4 0.083% IH SOL 2.5 MG/3 ML VIAL.NEB. NEB SCH ×4 (08:46→20:40)
[2018-09-11] MEDS: PRENATAL VITAMINS W/ FOLIC ACID TABLET (FP) PO SCH (10:26)
[2018-09-11] MEDS: MOMETASONE FUROATE 110 MCG/IH INHALER IH SCH ×2 (10:26→22:16)
[2018-09-11] MEDS: LORATADINE 10 MG TABLET PO SCH (10:26)
[2018-09-11] MEDS: GABAPENTIN 400 MG CAPSULE (FP) PO SCH ×2 (10:26→22:15)
[2018-09-11] MEDS: PANTOPRAZOLE 20 MG TABLET (FP) PO SCH ×2 (10:26→22:16)
--- NOTE | 2018-09-11 13:52 | PN ---
Vicky Progress Note Note: Psychiatry Attending's note : Met with the patient to discuss medications. Trace allowed to contact [facility]. Central Office Trouble Shooter contacted [facility] ([phone]). Refill for wellbutrin XL 300 mg/day is confirmed. As per pharmacist, picked up on 08/31/18. Side effects/benefits reviewed with the patient. No history of seizures. Consent (verbal) secured. Will resume wellbutrin.
--- NOTE | 2018-09-11 14:50 | PN ---
[facility] CIWA - CIWA Score Nausea/Vomitin-No Nausea/No Vomiting Muscle Tremors: 1-None Visible, but [place] Anxiety: 1-Mildly Anxious Agitation: 1-Slight > Activity Paroxysmal Sweats: 1-Minimal Palms Moist Orientation: 0-Oriented Tacttile Disturbances: 0-None Auditory Disturbances: 0-None Visual Disturbances: 0-None Headache: 1-Very Mild CIWA-Ar Total Score: 5 BHS Progress Note (SOAP) Subjective: feeling better stuffy nose poor appetite Objective: 09/11/18 14:49 Vital Signs Temperature 98.6 F 09/11/18 13:47 Pulse Rate 73 09/11/18 13:47 Respiratory Rate 16 09/11/18 13:47 Blood Pressure 133/53 L 09/11/18 13:47 O2 Sat by Pulse Oximetry (%) 98 09/11/18 09:16 Laboratory Last Values WBC 3.7 K/mm3 (4.0-10.0) L 09/10/18 07:30 RBC 4.42 M/mm3 (4.00-5.60) 09/10/18 07:30 Hgb 13.4 GM/dL (11.7-16.9) 09/10/18 07:30 Hct 39.5 % (35.4-49) 09/10/18 07:30 MCV 89.4 fl (80-96) 09/10/18 07:30 MCH 30.3 pg (25.7-33.7) 09/10/18 07:30 MCHC 33.9 g/dl (32.0-35.9) 09/10/18 07:30 RDW 14.1 % (11.9-15.9) 09/10/18 07:30 Plt Count 175 K/MM3 (134-434) D 09/10/18 07:30 MPV 11.0 fl (7.5-11.1) 09/10/18 07:30 Sodium 142 mmol/L (136-145) 09/10/18 07:30 Potassium 4.0 mmol/L (3.5-5.1) 09/10/18 07:30 Chloride 107 mmol/L (98-107) 09/10/18 07:30 Carbon Dioxide 27 mmol/L (21-32) 09/10/18 07:30 Anion Gap 7 MMOL/L (8-16) L 09/10/18 07:30 BUN 18 mg/dL (7-18) 09/10/18 07:30 Creatinine 0.9 mg/dL (0.55-1.3) 09/10/18 07:30 Creat Clearance w eGFR 97.18 (>60) 09/10/18 07:30 Random Glucose 96 mg/dL (74-106) 09/10/18 07:30 Calcium 8.0 mg/dL (8.5-10.1) L 09/10/18 07:30 Total Bilirubin 0.1 mg/dL (0.2-1) L 09/10/18 07:30 AST 16 U/L (15-37) 09/10/18 07:30 ALT 24 U/L (13-61) 09/10/18 07:30 Alkaline Phosphatase 73 U/L (45-117) 09/10/18 07:30 Total Protein 5.4 g/dl (6.4-8.2) L 09/10/18 07:30 Albumin 2.8 g/dl (3.4-5.0) L 09/10/18 07:30 Urine Color Yellow 09/10/18 11:20 Urine Appearance Clear 09/10/18 11:20 Urine pH 7.0 (5.0-8.0) 09/10/18 11:20 Ur Specific [place] 1.028 (1.010-1.035) 09/10/18 11:20 Urine Protein Negative (NEGATIVE) 09/10/18 11:20 Urine Glucose (UA) Negative (NEGATIVE) 09/10/18 11:20 Urine Ketones Negative (NEGATIVE) 09/10/18 11:20 Urine Blood Negative (NEGATIVE) 09/10/18 11:20 Urine Nitrite Negative (NEGATIVE) 09/10/18 11:20 Urine Bilirubin Negative (NEGATIVE) 09/10/18 11:20 Urine Urobilinogen 1.0 mg/dL (0.2-1.0) 09/10/18 11:20 Ur Leukocyte Esterase Negative (NEGATIVE) 09/10/18 11:20 RPR Titer Reactive 1:1 (NONREACTIVE) H 09/10/18 07:30 T.pallidum Ab (MHA) Non reactive (NONREACTIVE) 09/10/18 07:30 HIV 1&2 Antibody Screen Negative 09/11/18 07:30 HIV P24 Antigen Negative 09/11/18 07:30 lab noted low calcium Assessment: 09/11/18 14:50 mild withdrawal sx Plan: continue detox
[2018-09-11] MEDS: SODIUM CHLORIDE NASAL SPRAY 44 ML BOTTLE NS SCH ×2 (17:54→22:16)
[2018-09-11] MEDS: CALCIUM 250MG/VIT-D 125 UNITS 1 COMBO TABLET PO SCH ×2 (17:55→22:16)
[2018-09-11] MEDS: THIAMINE HCL 100 MG TABLET (FP) PO SCH (22:15)
[2018-09-11] MEDS: MELATONIN 5 MG TABLETS PO PRN (22:20)
[2018-09-12] MEDS ORDERED: METHADONE HCL 10 MG TABLET ONE (04:22)
[2018-09-12] MEDS ORDERED: METHADONE HCL 40 MG DISPERSABLE TABLET ONE (04:23)
[2018-09-12] MEDS: METHADONE 120 MG, METHADONE 10 MG PO SCH (05:12)
[2018-09-12] MEDS: NICOTINE POLACRILEX 2 MG GUM BUC PRN (05:14)
[2018-09-12] MEDS ORDERED: diazePAM 5 MG TABLET PO ONE (06:00)
[2018-09-12] MEDS: SODIUM CHLORIDE NASAL SPRAY 44 ML BOTTLE NS SCH (07:00)
[2018-09-12 09:06] VITALS: BP 131/80; PULSE 86; TEMP 96.7
[2018-09-12] MEDS: ALBUTEROL SO4 0.083% IH SOL 2.5 MG/3 ML VIAL.NEB. NEB SCH (09:19)
[2018-09-12] MEDS: LORATADINE 10 MG TABLET PO SCH (10:02)
[2018-09-12] MEDS: GABAPENTIN 400 MG CAPSULE (FP) PO SCH (10:02)
[2018-09-12] MEDS: PANTOPRAZOLE 20 MG TABLET (FP) PO SCH (10:02)
[2018-09-12] MEDS: PRENATAL VITAMINS W/ FOLIC ACID TABLET (FP) PO SCH (10:02)
[2018-09-12] MEDS: CALCIUM 250MG/VIT-D 125 UNITS 1 COMBO TABLET PO SCH (10:03)
[2018-09-12] MEDS: MOMETASONE FUROATE 110 MCG/IH INHALER IH SCH (10:03)
--- NOTE | 2018-09-12 12:50 | DS ---
[facility] Detox Discharge Summary Admission Date: 09/10/18 Discharge Date: 09/12/18 - History Present History: Sedative Dependence Additional Comments: 33 yeasr old male admitted on 09/09/18 for benzo withdrwawa stabilization [facility] Pertinent Past History: patient agrees to return to methadone maintenance program for medical and mental issues - Physical Exam Results Vital Signs: Vital Signs Temperature 96.7 F L 09/12/18 09:04 Pulse Rate 86 09/12/18 09:04 Respiratory Rate 16 09/12/18 09:04 Blood Pressure 131/80 09/12/18 09:04 O2 Sat by Pulse Oximetry (%) 98 09/11/18 09:16 Pertinent Admission Physical Exam Findings: benzo withdrawal sx Laboratory Last Values WBC 3.7 K/mm3 (4.0-10.0) L 09/10/18 07:30 RBC 4.42 M/mm3 (4.00-5.60) 09/10/18 07:30 Hgb 13.4 GM/dL (11.7-16.9) 09/10/18 07:30 Hct 39.5 % (35.4-49) 09/10/18 07:30 MCV 89.4 fl (80-96) 09/10/18 07:30 MCH 30.3 pg (25.7-33.7) 09/10/18 07:30 MCHC 33.9 g/dl (32.0-35.9) 09/10/18 07:30 RDW 14.1 % (11.9-15.9) 09/10/18 07:30 Plt Count 175 K/MM3 (134-434) D 09/10/18 07:30 MPV 11.0 fl (7.5-11.1) 09/10/18 07:30 Sodium 142 mmol/L (136-145) 09/10/18 07:30 Potassium 4.0 mmol/L (3.5-5.1) 09/10/18 07:30 Chloride 107 mmol/L (98-107) 09/10/18 07:30 Carbon Dioxide 27 mmol/L (21-32) 09/10/18 07:30 Anion Gap 7 MMOL/L (8-16) L 09/10/18 07:30 BUN 18 mg/dL (7-18) 09/10/18 07:30 Creatinine 0.9 mg/dL (0.55-1.3) 09/10/18 07:30 Creat Clearance w eGFR 97.18 (>60) 09/10/18 07:30 Random Glucose 96 mg/dL (74-106) 09/10/18 07:30 Calcium 8.0 mg/dL (8.5-10.1) L 09/10/18 07:30 Total Bilirubin 0.1 mg/dL (0.2-1) L 09/10/18 07:30 AST 16 U/L (15-37) 09/10/18 07:30 ALT 24 U/L (13-61) 09/10/18 07:30 Alkaline Phosphatase 73 U/L (45-117) 09/10/18 07:30 Total Protein 5.4 g/dl (6.4-8.2) L 09/10/18 07:30 Albumin 2.8 g/dl (3.4-5.0) L 09/10/18 07:30 Urine Color Yellow 09/10/18 11:20 Urine Appearance Clear 09/10/18 11:20 Urine pH 7.0 (5.0-8.0) 09/10/18 11:20 Ur Specific [place] 1.028 (1.010-1.035) 09/10/18 11:20 Urine Protein Negative (NEGATIVE) 09/10/18 11:20 Urine Glucose (UA) Negative (NEGATIVE) 09/10/18 11:20 Urine Ketones Negative (NEGATIVE) 09/10/18 11:20 Urine Blood Negative (NEGATIVE) 09/10/18 11:20 Urine Nitrite Negative (NEGATIVE) 09/10/18 11:20 Urine Bilirubin Negative (NEGATIVE) 09/10/18 11:20 Urine Urobilinogen 1.0 mg/dL (0.2-1.0) 09/10/18 11:20 Ur Leukocyte Esterase Negative (NEGATIVE) 09/10/18 11:20 RPR Titer Reactive 1:1 (NONREACTIVE) H 09/10/18 07:30 T.pallidum Ab (MHA) Non reactive (NONREACTIVE) 09/10/18 07:30 Hep C Ab Diagnostic <0.1 s/co ratio (0.0-0.9) 09/11/18 07:30 HIV 1&2 Antibody Screen Negative 09/11/18 07:30 HIV P24 Antigen Negative 09/11/18 07:30 lab noted - Treatment Hospital Course: Detox Protocol Followed, Detoxed Safely, Responded well, Discharged Condition Good, Rehab Referral Accepted Patient has Accepted a Rehab Referral to: [facility] - Medication Discharge Medications: Ambulatory Orders Gabapentin [Neurontin] 800 mg PO BID 05/25/14 Bupropion HCl [Wellbutrin Sr] 150 mg PO BID 09/09/18 Meloxicam [Mobic] 7.5 mg PO DAILY 09/09/18 Methadone [Dolophine -] 130 mg PO DAILY@0600 09/11/18 - Diagnosis (1) Sedative, hypnotic or anxiolytic dependence with withdrawal, uncomplicated Status: Acute (2) Weight decreased Status: Acute (3) Nicotine dependence Status: Acute Qualifiers: Nicotine product type: cigarettes Substance use status: in withdrawal Qualified Code(s): F17.213 - Nicotine dependence, cigarettes, with withdrawal (4) Methadone maintenance therapy patient Status: Chronic - AMA Did Patient Leave Against Medical Advice: No
== END 2018-09-12 09:20 | disposition home or self-care (01) | DRG 773 ==
LOC: YASAS 14:05 → Y3N 09-10 00:15
PROVIDERS: ADMIT Surgery; ATTEND Surgery
PROC: HZ2ZZZZ Detoxification Services for Substance Abuse Treatment (ICD-10-PCS; principal; 2018-09-10)
DX: F11.23 Opioid dependence with withdrawal (principal); F10.230 Alcohol dependence with withdrawal, uncomplicated; F13.230 Sedative, hypnotic or anxiolytic dependence with withdrawal, uncomplicated; F14.20 Cocaine dependence, uncomplicated; F12.20 Cannabis dependence, uncomplicated; F17.213 Nicotine dependence, cigarettes, with withdrawal; F19.24 Other psychoactive substance dependence with psychoactive substance-induced mood disorder; R10.13 Epigastric pain; M14.671 Charcot's joint, right ankle and foot; Z87.438 Personal history of other diseases of male genital organs; Z59.0 Homelessness
CPT/HCPCS: 36415; 80053; 81003; 85027; 86593; 86780; 86803; 87389; 93005; 93010; 94640

== ENCOUNTER 2018-09-12 12:34 | Inpatient (IN) | payer OTHER ==
[2018-09-12 13:06] VITALS: BMI 22.8
[2018-09-12] MEDS ORDERED: MAGNESIUM HYDROX 2400MG/30ML ORAL SUSPENSION 30 ML CUP PO PRN (13:07)
[2018-09-12] MEDS ORDERED: P-EPHED 60MG/TRIPROLIDI 2.5MG TABLET PO PRN (13:07)
[2018-09-12] MEDS ORDERED: IBUPROFEN 400 MG TABLET (FP) PO PRN (13:07)
[2018-09-12] MEDS ORDERED: LOPERAMIDE HCL 2 MG CAPSULE PO PRN (13:07)
[2018-09-12] MEDS ORDERED: MAGNESIUM CITRATE 300 ML BOTTLE PO PRN (13:07)
[2018-09-12] MEDS ORDERED: NICOTINE 14 MG/24 HOURS TOPICAL PATCH TD PRN (13:07)
[2018-09-12] MEDS ORDERED: MENTHOL/PHENOL 1 EACH UD MM PRN (13:07)
[2018-09-12] MEDS ORDERED: guaiFENesin 200 MG/10 ML 10 ML UNIT-DOSE CUPS PO PRN (13:07)
[2018-09-12] MEDS ORDERED: MAG HYDROX/AL HYDROX/SIMETH 30 ML UNIT-DOSE CUP PO PRN (13:07)
--- NOTE | 2018-09-12 13:07 | HP ---
[facility] Rehab Assess/Revision - Admission History Admitted to Rehab from: [facility] Date of Admission to Rehab: 09/11/18 - Findings Detox History & Physical reviewed: Yes Concur with findings: Yes Comments/Additional Findings: transferred from to detox to rehab admission as per protocol Inpatient Rehab Admission - Rehab Decision to Admit Inpatient rehab admission?: Yes - Initial Determination Are CD services needed?: Yes Free of communicable disease: Yes Not in need of hospitalization: Yes - Rehab Admission Criteria Previous failed treatment: Yes Poor recovery environment: Yes Comorbidities: Yes Lacks judgement: No Patient is meeting Inpatient Rehab admission criteria:: Yes
[2018-09-12] MEDS: ACETAMINOPHEN 325 MG TABLET (FP) PO PRN (17:29)
[2018-09-12] MEDS: NICOTINE POLACRILEX 2 MG GUM BC PRN ×2 (17:37→21:14)
[2018-09-12] MEDS: THIAMINE HCL 100 MG TABLET (FP) PO SCH (21:13)
[2018-09-12] MEDS ORDERED: MELATONIN 5 MG TABLETS PO PRN (22:00)
[2018-09-13] MEDS ORDERED: METHADONE HCL 40 MG DISPERSABLE TABLET PO SCH (06:00)
[2018-09-13] MEDS ORDERED: METHADONE HCL 10 MG TABLET ONE (06:08)
[2018-09-13] MEDS ORDERED: METHADONE HCL 40 MG DISPERSABLE TABLET ONE (06:08)
[2018-09-13] MEDS: METHADONE 120 MG, METHADONE 10 MG PO SCH (06:22)
[2018-09-13] MEDS: ACETAMINOPHEN 325 MG TABLET (FP) PO PRN ×2 (08:41→17:04)
[2018-09-13] MEDS: PRENATAL VITAMINS W/ FOLIC ACID TABLET (FP) PO SCH (10:17)
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
--- NOTE | 2018-09-13 11:21 | PN ---
S Progress Note Note: PATIENT SEEN FOR C/O LEFT ANTERIOR PELVIC DISCOMFORT. PATIENT DENIES RECENT INJURIES, DYSURIA, FEVER AND ABDOMINAL PAIN. REPORTS DISCOMFORT RADIATES TO LOWER BACK AT TIMES. Vital Signs Temperature 97.1 F L 09/13/18 06:48 Pulse Rate 62 09/13/18 06:48 Respiratory Rate 18 09/13/18 06:48 Blood Pressure 132/90 09/13/18 06:48 O2 Sat by Pulse Oximetry (%) PE: ALERT AND ORIENTED X 3 SKIN WARM AND DRY CAR S1S2 RESP CTA BL : NO PELVIC TENDERNESS, NEG CVAT EXT: FULL ROM, AMB AD ALISA A/P: INTERMITTENT LBP/ LEFT PELVIC DISCOMFORT LABS REVIEWED WITH PATIENT CONTINUE MOTRIN PRN MONITOR CLINICALLY
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
[2018-09-13] MEDS ORDERED: GABAPENTIN 300 MG CAPSULE (FP) PO ONE (14:07)
[2018-09-13] MEDS: NICOTINE POLACRILEX 2 MG GUM BC PRN (15:03)
[2018-09-13] MEDS: GABAPENTIN 300 MG CAPSULE (FP) PO SCH (21:17)
[2018-09-13] MEDS: THIAMINE HCL 100 MG TABLET (FP) PO SCH (21:17)
[2018-09-13] MEDS ORDERED: MELATONIN 5 MG TABLETS PO PRN (22:00)
[2018-09-14] MEDS ORDERED: METHADONE HCL 10 MG TABLET ONE (04:20)
[2018-09-14] MEDS ORDERED: METHADONE HCL 40 MG DISPERSABLE TABLET ONE (04:20)
[2018-09-14] MEDS: METHADONE 120 MG, METHADONE 10 MG PO SCH (05:53)
[2018-09-14 07:01] VITALS: BP 111/58; PULSE 63; TEMP 97.4
[2018-09-14] MEDS: ACETAMINOPHEN 325 MG TABLET (FP) PO PRN (08:39)
[2018-09-14] MEDS: PRENATAL VITAMINS W/ FOLIC ACID TABLET (FP) PO SCH (09:58)
[2018-09-14] MEDS: GABAPENTIN 300 MG CAPSULE (FP) PO SCH (09:58)
[2018-09-14] MEDS ORDERED: ALBUTEROL SO4 8 GM HFA INHALER IH PRN (12:56)
--- NOTE | 2018-09-14 16:00 | PN ---
[facility] Progress Note Note: Psychiatry Attending's note : Informed of patient's decision to leave the program. Came to unit to meet with Mr Woodward. Chart reviewed. Discussed with nursing staff + medical attending Dr Carr. 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 Reasons for leaving : explored with the patient. Mr Woodward states that he wants to spend time with his sister. " I have not seen my sister for years. She is leaving for [place] soon and I want to spend some time with her. That 's why I am leaving ". Patient is encouraged to continue rehabilitative care. He refused. Made aware of risk of missing his methadone dose tomorrow (program closed). " I don't mind. I am working on taking less methadone anyway. I am returning to my program on Sunday ". Resistant to advice and encouragement to stay in treatment. Mental status : Patient is alert and fully oriented. Coherent, goal-directed and cognitively intact. Mr Woodward denies suicidal/homicidal ideation, intent and plan. Not in distress. Patient has the capacity to make reasoned decisions pertinent to his welfare. Patient is stable. He is offered scripts for wellbutrin. Patient declines.
--- NOTE | 2018-09-14 16:47 | PN ---
[facility] Progress Note Note: informed by nurse that patient do not want to complete treatment seen by me in the unit [address] patient stated that he has to leave today to spend time with his sister whom he did not see her since 2011.the sister is now with his mother who lives in [facility],and she is leaving for [place] tomorrow patient is on methadone maintenance 130 mgs/day,last medicated today,he will miss his methadone dose tomorrow.he stated he is going to be ok,he missed the methadone before and will go to [facility]tp on Sunday09/16/18 all attempts do convince patient to stay by me,,nurse and counselor with no avail Vital Signs Temperature 97.4 F L 09/14/18 07:01 Pulse Rate 63 09/14/18 07:01 Respiratory Rate 18 09/14/18 07:01 Blood Pressure 111/58 L 09/14/18 07:01 O2 Sat by Pulse Oximetry (%) the high risk of relapsing explained to patient patient understood,signed release ama,advise to go to nearest emergency room if emergency medical problem patient left unit in stable condition refused prescription for neurontin,albuterol inhaler
== END 2018-09-14 16:05 | disposition left against medical advice (07) | DRG 770 ==
LOC: YASAS 12:34 → Y3W 12:36
PROVIDERS: ADMIT Neuromusculoskeletal Medicine & OMM; ATTEND Neuromusculoskeletal Medicine & OMM
PROC: HZ2ZZZZ Detoxification Services for Substance Abuse Treatment (ICD-10-PCS; principal; 2018-09-12)
DX: F10.20 Alcohol dependence, uncomplicated (principal); F13.230 Sedative, hypnotic or anxiolytic dependence with withdrawal, uncomplicated; F14.20 Cocaine dependence, uncomplicated; F12.20 Cannabis dependence, uncomplicated; F11.20 Opioid dependence, uncomplicated; F17.210 Nicotine dependence, cigarettes, uncomplicated; F19.24 Other psychoactive substance dependence with psychoactive substance-induced mood disorder; F19.282 Other psychoactive substance dependence with psychoactive substance-induced sleep disorder; G62.9 Polyneuropathy, unspecified; Z86.59 Personal history of other mental and behavioral disorders; Z86.19 Personal history of other infectious and parasitic diseases; Z91.5 Personal history of self-harm; Z59.0 Homelessness

== ENCOUNTER 2019-04-14 14:28 | Inpatient (IN) | payer OTHER ==
[2019-04-14 16:06] VITALS: BMI 19.5
--- NOTE | 2019-04-14 18:28 | HP ---
CIWA Score Nausea/Vomitin Muscle Tremors: 4-Moderate,w/Arms Extend Anxiety: 2 Agitation: 1-Slight > Activity Paroxysmal Sweats: 1-Minimal Palms Moist Orientation: 0-Oriented Tacttile Disturbances: 1-Very Mild Itch/Numbness Auditory Disturbances: 1-Very Mild Visual Disturbances: 2-Mild Sensitivity Headache: 1-Very Mild CIWA-Ar Total Score: 16 - Admission Criteria OASAS Guidelines: Admission for Medically Managed Detox: Requires at least one of the followin. CIWA greater than 12 2. Seizures within the past 24 hours 3. Delirium tremens within the past 24 hours 4. Hallucinations within the past 24 hours 5. Acute intervention needed for co occurring medical disorder 6. Acute intervention needed for co occurring psychiatric disorder 7. Severe withdrawal that cannot be handled at a lower level of care (continued vomiting, continued diarrhea, abnormal vital signs) requiring intravenous medication and/or fluids 8. Admitting History and Physical - Past Surgical History Past Surgical History: Yes: None - Smoking History Smoking history: Current every day smoker Have you smoked in the past 12 months: Yes Aproximately how many cigarettes per day: 5 - Alcohol/Substance Use Hx Alcohol Use: Yes History of Substance Use: reports: Heroin, Tranquilizers Date of Last Use: 04/14/19 - Social History Usual Living Arrangement: Yes: Other (Grandmother and uncle) Do you think of yourself as: Straight/Heterosexual ADL: Independent Occupation: Unemployed History of Recent Travel: No Admission [facility] Chief Complaint: Withdrawal symptoms Allergies/Adverse Reactions: Allergies Allergy/AdvReac Type Severity Reaction Status Date / Time carbamazepine [From Tegretol] Allergy Severe Hives Verified 04/14/19 15:53 History of Present Illness: 33 y.o. man with an extensive history of alcohol, benzodiazepine, Xanax, crystal meth dependence. He has had multiple admissons here for detox with the last being from 09/10/18 to 09/12/18. Longest period of drug and alcohol abstinence has been 90 days. He reports he is enrolled at [facility] and states he was last medicated today with 60mg of methadone. Exam Limitations: No Limitations - Ebola screening Have you traveled outside of the country in the last 21 days: No Have you had contact with anyone from an Ebola affected area: No Do you have a fever: No - Review of Systems Constitutional: Night Sweats, Unintentional Wgt. Loss EENT: reports: Blurred Vision, Tearing, Nose Congestion, Dental Problems Respiratory: reports: Cough Cardiac: reports: Chest Pain GI: reports: Diarrhea, Abdominal cramping : reports: No Symptoms Reported Musculoskeletal: reports: No Symptoms Reported Integumentary: reports: Bruising, Dryness, Lesions Neuro: reports: Headache, Numbness, Tremors, Other (Syncope: 1 day ago) Endocrine: reports: No Symptoms Reported Hematology: reports: No Symptoms Reported Psychiatric: reports: Anxious Other Systems: Reviewed and Negative Patient History - Patient Medical History Hx Anemia: No Hx Asthma: No (Denies ) Hx Chronic Obstructive Pulmonary Disease (COPD): No Hx Cancer: No Hx Cardiac Disorders: No Hx Congestive Heart Failure: No Hx Hypertension: No Hx Hypercholesterolemia: No Hx Pacemaker: No HX Cerebrovascular Accident: No Hx Seizures: No Hx Dementia: No Hx Diabetes: No Hx Gastrointestinal Disorders: No Hx Liver Disease: No Hx Genitourinary Disorders: No Hx Sexually Transmitted Disorders: Yes (COMPLETED TX FOR SYPHILIS LAST 2017) Hx Renal Disease (ESRD): No Hx Thyroid Disease: No Hx Human Immunodeficiency Virus (HIV): No (NEGATIVE HX last 02/2019 ) Hx Hepatitis C: No Hx Depression: Yes Hx Suicide Attempt: No Hx Bipolar Disorder: No Hx Schizophrenia: No - Patient Surgical History Past Surgical History: No Hx Neurologic Surgery: No Hx Cataract Extraction: No Hx Cardiac Surgery: No Hx Lung Surgery: No Hx Breast Surgery: No Hx Breast Biopsy: No Hx Abdominal Surgery: No Hx Appendectomy: No Hx Cholecystectomy: No Hx Genitourinary Surgery: No Hx Section: No Hx Orthopedic Surgery: No Hx Hysterectomy: No Anesthesia Reaction: No - PPD History Previous Implant?: Yes Documented Results: Negative w/proof Implanted On Prior R Admission?: Yes Date: 10/12/17 Results: 0 mm PPD to be Administered?: Yes - Reproductive History Patient is a Female of Child Bearing Age (11 -55 yrs old): No - Smoking Cessation Smoking history: Current every day smoker Have you smoked in the past 12 months: Yes Aproximately how many cigarettes per day: 5 Cigars Per Day: 0 Hx Chewing Tobacco Use: No Initiated information on smoking cessation: Yes 'Breaking Loose' booklet given: 04/14/19 - Substance & Tx. History Hx Alcohol Use: Yes Hx Substance Use: Yes Substance Use Type: Alcohol, Cocaine, Heroin Hx Substance Use Treatment: Yes (Detox and rehab: 08/2018) - Substances abused Heroin Substance route: Injection Frequency: Daily Amount used: 2 bags every 3 hours Age of first use: 27 Date of last use: 04/14/19 Alcohol Substance route: Oral Frequency: Daily Amount used: 96 oz of Coarse light Age of first use: 25 Date of last use: 04/14/19 Crystal meth Substance route: Injection Frequency: 3-6 times per week Amount used: 1 gram Age of first use: 25 Date of last use: 04/13/19 Alprazolam (Xanax) Substance route: Oral Frequency: Daily Amount used: 4 tablets Age of first use: 21 Date of last use: 04/12/19 Admission Physical Exam S - Vital Signs Vital Signs: Vital Signs - 24 hr 04/14/19 15:53 Temperature 97.3 F L Pulse Rate 87 Respiratory 18 Rate Blood Pressure 121/71 - Physical General Appearance: Yes: Thin, Irritable, Sweating, Anxious HEENTM: Yes: Hearing grossly Normal, Normocephalic, Normal Voice Respiratory: Yes: Lungs Clear, Normal Breath Sounds, No Respiratory Distress, No Accessory Muscle Use Neck: Yes: Within Normal Limits, No masses,lesions,Nodules Breast: Yes: Breast Exam Deferred Cardiology: Yes: Within Normal Limits, Regular Rhythm, Regular Rate Abdominal: Yes: Non Tender, Flat Genitourinary: Yes: Other (No complaints reported) Back: Yes: Normal Inspection Musculoskeletal: Yes: Gait Steady Extremities: Yes: Tremors, Erythema Neurological: Yes: Alert, Normal Mood/Affect, Normal Response, Numbness Integumentary: Yes: Normal Color, Dry, Warm, Erythema, Track Suggs Lymphatic: Yes: Within Normal Limits - Diagnostic (1) Alcohol dependence with uncomplicated withdrawal Current Visit: Yes Status: Chronic (2) Cannabis dependence Current Visit: Yes Status: Chronic (3) Cocaine dependence Current Visit: Yes Status: Chronic (4) Sedative, hypnotic or anxiolytic dependence with withdrawal, uncomplicated Current Visit: Yes Status: Chronic (5) Syncope Current Visit: No Status: Acute (6) Weight decreased Current Visit: Yes Status: Acute (7) Benzodiazepine dependence Current Visit: Yes Status: Chronic (8) Cocaine dependence, uncomplicated Current Visit: Yes Status: Chronic (9) Nicotine dependence Current Visit: Yes Status: Chronic Qualifiers: Nicotine product type: cigarettes Substance use status: in withdrawal Qualified Code(s): F17.213 - Nicotine dependence, cigarettes, with withdrawal (10) Opioid dependence on agonist therapy Current Visit: Yes Status: Chronic (11) Tinea pedis Current Visit: Yes Status: Acute (12) Methamphetamine dependence Current Visit: Yes Status: Chronic (13) Neuropathic arthritis Current Visit: Yes Status: Chronic Cleared for Admission [facility] - Detox or Rehab [facility] Level of Care: Medically Managed Detox Regimen/Protocol: Valium Claeared for Rehab Admission: No Urine Drug Screen - Test Device Lot number: [id number] Expiration date: 12/15/20 - Control Is test valid?: Yes - Results Drug screen NEGATIVE: No Urine drug screen results: THC-Marijuana, SILVIO-Cocaine, MET-Methamphetamine, AMP- Amphetamines, FEN-Fentanyl, MOP-Opiates, OXY-Oxycodone, MTD-Methadone, BZO- Benzodiazepines, MDMA-Ecstasy, BUP-Suboxone Inpatient Rehab Admission - Rehab Decision to Admit Inpatient rehab admission?: No
[2019-04-14] MEDS ORDERED: MAGNESIUM HYDROX 2400MG/30ML ORAL SUSPENSION 30 ML CUP PO PRN (18:41)
[2019-04-14] MEDS ORDERED: MAGNESIUM CITRATE 300 ML BOTTLE PO PRN (18:41)
[2019-04-14] MEDS ORDERED: ACETAMINOPHEN 325 MG TABLET (FP) PO PRN ×2 (18:41)
[2019-04-14] MEDS ORDERED: MELATONIN 5 MG TABLETS PO PRN (18:41)
[2019-04-14] MEDS ORDERED: hydrOXYzine PAMOATE 25 MG CAPSULE (FP) PO PRN (18:41)
[2019-04-14] MEDS ORDERED: BISMUTH SUBSALICYLATE 524 MG/30 ML UD PO PRN (18:41)
[2019-04-14] MEDS ORDERED: MENTHOL/PHENOL 1 EACH UD MM PRN (18:41)
[2019-04-14] MEDS ORDERED: METHOCARBAMOL 500 MG TABLET PO PRN (18:41)
[2019-04-14] MEDS ORDERED: MAG HYDROX/AL HYDROX/SIMETH 30 ML UNIT-DOSE CUP PO PRN (18:41)
[2019-04-14] MEDS ORDERED: IBUPROFEN 400 MG TABLET (FP) PO PRN (18:41)
[2019-04-14] MEDS: diazePAM 5 MG TABLET PO PRN (20:01)
[2019-04-14] MEDS: THIAMINE HCL 100 MG TABLET (FP) PO SCH (22:21)
[2019-04-14] MEDS: diazePAM 5 MG TABLET PO SCH (22:21)
[2019-04-14] MEDS: GABAPENTIN 400 MG CAPSULE (FP) PO SCH (22:22)
[2019-04-14] MEDS: TOLNAFTATE 1% CREAM 15 GM TUBE TP SCH (22:23)
[2019-04-15] MEDS: diazePAM 5 MG TABLET PO SCH ×3 (06:16→22:37)
[2019-04-15] MEDS: GABAPENTIN 400 MG CAPSULE (FP) PO SCH ×3 (06:16→22:36)
[2019-04-15] MEDS ORDERED: METHADONE HCL 40 MG DISPERSABLE TABLET ONE (09:22)
[2019-04-15] MEDS ORDERED: METHADONE HCL 10 MG TABLET ONE (09:22)
[2019-04-15 10:00] LABS: HEMATOCRIT 39.7 % (35.4-49); HEMOGLOBIN 12.9 GM/dL (11.7-16.9); MCH 28.5 pg (25.7-33.7); MCHC 32.6 g/dl (32.0-35.9); MEAN CELL VOLUME 87.5 fl (80-96); MEAN PLT VOLUME 8.6 fl (7.5-11.1); PLATELET COUNT 282 K/MM3 (134-434); RBC 4.54 M/mm3 (4.00-5.60); RDW 13.2 % (11.9-15.9); WHITE BLOOD COUNT 5.1 K/mm3 (4.0-10.0)
[2019-04-15] MEDS ORDERED: METHADONE HCL 10 MG TABLET PO ONE (10:00)
[2019-04-15] MEDS ORDERED: METHADONE 40 MG, METHADONE 20 MG PO ONE (10:00)
[2019-04-15 10:13] LABS: ALBUMIN 2.9 g/dl (3.4-5.0); BILIRUBIN,TOTAL 0.2 mg/dL (0.2-1); BLOOD UREA NITROGEN 16.7 mg/dL (7-18); CALCIUM 8.3 mg/dL (8.5-10.1); CREATININE 0.8 mg/dL (0.55-1.3); POTASSIUM 4.3 mmol/L (3.5-5.1); TOT PROT 5.9 g/dl (6.4-8.2)
[2019-04-15 10:20] LABS: RPR REACTIVE 1:1 (NONREACTIVE)
[2019-04-15] MEDS: NICOTINE 14 MG/24 HOURS TOPICAL PATCH TD SCH (10:24)
[2019-04-15] MEDS: NICOTINE POLACRILEX 2 MG GUM BUC PRN ×3 (10:24→22:37)
[2019-04-15] MEDS: PRENATAL VITAMINS W/ FOLIC ACID TABLET (FP) PO SCH (10:24)
[2019-04-15] MEDS: TOLNAFTATE 1% CREAM 15 GM TUBE TP SCH ×2 (10:26→22:37)
--- NOTE | 2019-04-15 11:07 | EKG ---
Test Reason : Blood Pressure : / mmHG Vent. Rate : 062 BPM Atrial Rate : 062 BPM P-R Int : 126 ms QRS Dur : 088 ms QT Int : 406 ms P-R-T Axes : 064 084 077 degrees QTc Int : 412 ms NORMAL SINUS RHYTHM NORMAL ECG WHEN COMPARED WITH ECG OF 10-SEP-2018 05:15, NO SIGNIFICANT CHANGE WAS FOUND Confirmed by Benito Collazo MD ([id number]) on 04/15/2019 11:06:59 AM Referred By: Confirmed By:Benito Collazo MD
[2019-04-15 12:30] LABS: TREPONEMA ANTIBODY NON REACTIVE (NONREACTIVE)
--- NOTE | 2019-04-15 14:27 | CONSULT ---
[facility] Psychiatric Consult - Data Date of interview: 04/15/19 Admission source: [facility] Identifying data: Readmission to [facility] for this 33 y/o male self- referred for detoxification (xanax, alcohol, cocaine, cannabis, heroin, methamphetamine). Examined at [address] [place] [address]. Patient is single, no children, homeless , unemployed and supported on welfare. Substance Abuse History: Discussed with the patient. Details in current [facility] report as follows : Smoking history: Current every day smoker. Have you smoked in the past 12 months: Yes. Aproximately how many cigarettes per day: 5. Cigars Per Day: 0. Hx Chewing Tobacco Use: No. Initiated information on smoking cessation: Yes. 'Breaking Loose' booklet given: 04/14/19. - Substance & Tx. History. Hx Alcohol Use: Yes. Hx Substance Use: Yes. Substance Use Type : Alcohol, Cocaine, Heroin. Hx Substance Use Treatment: Yes (Detox and rehab: ). - Substances abused. Heroin. Substance route: Injection. Frequency: Daily. Amount used: 2 bags every 3 hours. Age of first use: 27. Date of last use: 04/14/19. Alcohol. Substance route: Oral. Frequency: Daily. Amount used: 96 oz of Coarse light. Age of first use: 25. Date of last use: 04/14/19. Crystal meth. Substance route: Injection. Frequency: 3 -6 times per week. Amount used: 1 gram. Age of first use: 25. Date of last use: 04/13/19. Alprazolam (Xanax). Substance route: Oral. Frequency: Daily. Amount used: 4 tablets. Age of first use: 21. Date of last use: Medical History: Medical profile is remarkable for past treatment for syphilis, neuropathic arthritis and chronic lumbar pain. Psychiatric History: Patient admits to a history of one psychiatric hospitalization ([facility]) and frequent CPEP visits. Diagnosed with ADHD, YANG and Schizoaffective Disorder. Onset of psychiatric disturbances : age [age]. Medications reported by patient : wellbutrin XL 300 mg/150 mg per day + zoloft 25 mg/day. Mr Woodward states that he last took 450 mg of bupropion two days ago. He sees a psychiatrist at the [facility] program (60 mg of methadone daily) in [facility]. Patient is known to the [employer] [place] in [facility]. Endorses a history of two suicide attempts via deliberate jump into the path of an oncoming city bus + overdose with heroin. Most recent suicide attempt (overdose) occurred in 2017. Physical/Sexual Abuse/Trauma History: Patient declines to discuss this domain. Additional Comment: Urine drug screen results: THC-Marijuana, SILVIO-Cocaine, MET- Methamphetamine, AMP-Amphetamines, FEN-Fentanyl, MOP-Opiates, OXY-Oxycodone, MTD -Methadone, BZO-Benzodiazepines, MDMA-Ecstasy, BUP-Suboxone. Noted. Mental Status Exam - Mental Status Exam Alert and Oriented to: Time, Place, Person Cognitive Function: Good Patient Appearance: Unkempt, Disheveled Mood: Nervous, Withdrawn, Anxious, Irritable Affect: Mood Congruent, Constricted Patient Behavior: Fatigued, Cooperative Speech Pattern: Clear Voice Loudness: Normal Thought Process: Goal Oriented Thought Disorder: Not Present Hallucinations: Denies Suicidal Ideation: Denies Homicidal Ideation: Denies Insight/Judgement: Poor Sleep: Poorly, Difficulty falling asleep Appetite: Good Muscle strength/Tone: Normal Gait/Station: Normal Psychiatric Findings - Problem List ([place] 1, 2,3) (1) Alcohol dependence with uncomplicated withdrawal Current Visit: Yes Status: Acute (2) Sedative, hypnotic or anxiolytic dependence with withdrawal, uncomplicated Current Visit: Yes Status: Acute (3) Opioid dependence on agonist therapy Current Visit: Yes Status: Chronic (4) Cannabis dependence Current Visit: Yes Status: Chronic (5) Cocaine dependence Current Visit: Yes Status: Chronic (6) Methamphetamine dependence Current Visit: Yes Status: Chronic (7) Nicotine dependence Current Visit: Yes Status: Chronic Qualifiers: Nicotine product type: cigarettes Substance use status: in withdrawal Qualified Code(s): F17.213 - Nicotine dependence, cigarettes, with withdrawal (8) Substance induced mood disorder Current Visit: Yes Status: Chronic (9) ADHD (attention deficit hyperactivity disorder) Current Visit: Yes Status: Chronic Comment: By history. (10) History of schizoaffective disorder Current Visit: Yes Status: Chronic (11) Insomnia Current Visit: Yes Status: Chronic - Initial Treatment Plan Initial Treatment Plan: Psychoeducation. Detoxification. Sleep hygiene. Patient insists on resuming wellbutrin. Ordered : wellbutrin 150 mg po bid @ 9 am + 3 pm. Side effects/benefits discussed with the patient. Informed of risk of seizures. Mr Woodward is in agreement with this plan of care. Observation.
--- NOTE | 2019-04-15 14:33 | PN ---
[facility] CIWA - CIWA Score Nausea/Vomitin-Mild Nausea/No Vomiting Muscle Tremors: 3 Anxiety: 3 Agitation: 2 Paroxysmal Sweats: 1-Minimal Palms Moist Orientation: 0-Oriented Tacttile Disturbances: 0-None Auditory Disturbances: 1-Very Mild Visual Disturbances: 0-None Headache: 0-None Present CIWA-Ar Total Score: 11 [facility] Progress Note (SOAP) Subjective: 33 years old male admitted on 04/14/19 for alcohol and benzo withdrawal sx management treated with valium detox regimen patient tolerate well received methadone 60 mg po today feeling better ate breakfast ambulating on hallway Objective: 04/15/19 14:32 Vital Signs Temperature 97.6 F 04/15/19 13:44 Pulse Rate 81 04/15/19 13:44 Respiratory Rate 18 04/15/19 13:44 Blood Pressure 106/60 04/15/19 13:44 O2 Sat by Pulse Oximetry (%) Laboratory Last Values WBC 5.1 K/mm3 (4.0-10.0) 04/15/19 08:15 RBC 4.54 M/mm3 (4.00-5.60) 04/15/19 08:15 Hgb 12.9 GM/dL (11.7-16.9) 04/15/19 08:15 Hct 39.7 % (35.4-49) 04/15/19 08:15 MCV 87.5 fl (80-96) 04/15/19 08:15 MCH 28.5 pg (25.7-33.7) 04/15/19 08:15 MCHC 32.6 g/dl (32.0-35.9) 04/15/19 08:15 RDW 13.2 % (11.9-15.9) 04/15/19 08:15 Plt Count 282 K/MM3 (134-434) D 04/15/19 08:15 MPV 8.6 fl (7.5-11.1) D 04/15/19 08:15 Sodium 139 mmol/L (136-145) 04/15/19 08:15 Potassium 4.3 mmol/L (3.5-5.1) 04/15/19 08:15 Chloride 104 mmol/L (98-107) 04/15/19 08:15 Carbon Dioxide 30 mmol/L (21-32) 04/15/19 08:15 Anion Gap 5 MMOL/L (8-16) L 04/15/19 08:15 BUN 16.7 mg/dL (7-18) 04/15/19 08:15 Creatinine 0.8 mg/dL (0.55-1.3) 04/15/19 08:15 Est GFR (CKD-EPI)AfAm 136.03 04/15/19 08:15 Est GFR (CKD-EPI)NonAf 117.37 04/15/19 08:15 Random Glucose 94 mg/dL (74-106) 04/15/19 08:15 Calcium 8.3 mg/dL (8.5-10.1) L 04/15/19 08:15 Total Bilirubin 0.2 mg/dL (0.2-1) 04/15/19 08:15 AST 17 U/L (15-37) 04/15/19 08:15 ALT 25 U/L (13-61) 04/15/19 08:15 Alkaline Phosphatase 68 U/L (45-117) 04/15/19 08:15 Total Protein 5.9 g/dl (6.4-8.2) L 04/15/19 08:15 Albumin 2.9 g/dl (3.4-5.0) L 04/15/19 08:15 RPR Titer Reactive 1:1 (NONREACTIVE) H 04/15/19 08:15 T.pallidum Ab (MHA) Non reactive (NONREACTIVE) 04/15/19 08:15 lab noted Assessment: 04/15/19 14:32 alcohol and benzo withdrawal sx Plan: continue valium detox regimen
[2019-04-15] MEDS ORDERED: buPROPion HCL 75 MG TABLET PO SCH (15:00)
[2019-04-15] MEDS: THIAMINE HCL 100 MG TABLET (FP) PO SCH (22:37)
[2019-04-16] MEDS ORDERED: METHADONE HCL 40 MG DISPERSABLE TABLET ONE (04:32)
[2019-04-16] MEDS ORDERED: METHADONE HCL 10 MG TABLET ONE (04:32)
[2019-04-16] MEDS ORDERED: METHADONE HCL 10 MG TABLET PO SCH (06:00)
[2019-04-16] MEDS: METHADONE 40 MG, METHADONE 20 MG PO SCH (06:04)
[2019-04-16] MEDS: diazePAM 5 MG TABLET PO SCH ×2 (06:04→17:17)
[2019-04-16] MEDS: GABAPENTIN 400 MG CAPSULE (FP) PO SCH ×3 (06:05→22:21)
[2019-04-16] MEDS: TOLNAFTATE 1% CREAM 15 GM TUBE TP SCH ×2 (09:49→22:23)
[2019-04-16] MEDS: PRENATAL VITAMINS W/ FOLIC ACID TABLET (FP) PO SCH (09:49)
[2019-04-16] MEDS: NICOTINE 14 MG/24 HOURS TOPICAL PATCH TD SCH (09:49)
--- NOTE | 2019-04-16 12:38 | PN ---
S CIWA - CIWA Score Nausea/Vomitin-No Nausea/No Vomiting Muscle Tremors: 2 Anxiety: 2 Agitation: 2 Paroxysmal Sweats: No Perspiration Orientation: 0-Oriented Tacttile Disturbances: 0-None Auditory Disturbances: 0-None Visual Disturbances: 0-None Headache: 0-None Present CIWA-Ar Total Score: 6 B[facility] Progress Note (SOAP) Subjective: 33 years old male admitted on 04/14/19 for alcohol and benzo withdrawal sx management treated with valium detox regimen patient tolerated well report has "lumps" behind his tongue denies pain multiple unified colored lumps at posterior of his toung patient is alert oriented x 3 speech clearly coherently ate breakfast no trouble chewing no trouble swallowing moist oral mucosa no drooling discuss oral hygiene chlorohexiden Objective: 04/16/19 12:37 Vital Signs Temperature 96.6 F L 04/16/19 09:08 Pulse Rate 90 04/16/19 09:08 Respiratory Rate 20 04/16/19 09:08 Blood Pressure 106/69 04/16/19 09:08 O2 Sat by Pulse Oximetry (%) Laboratory Last Values WBC 5.1 K/mm3 (4.0-10.0) 04/15/19 08:15 RBC 4.54 M/mm3 (4.00-5.60) 04/15/19 08:15 Hgb 12.9 GM/dL (11.7-16.9) 04/15/19 08:15 Hct 39.7 % (35.4-49) 04/15/19 08:15 MCV 87.5 fl (80-96) 04/15/19 08:15 MCH 28.5 pg (25.7-33.7) 04/15/19 08:15 MCHC 32.6 g/dl (32.0-35.9) 04/15/19 08:15 RDW 13.2 % (11.9-15.9) 04/15/19 08:15 Plt Count 282 K/MM3 (134-434) D 04/15/19 08:15 MPV 8.6 fl (7.5-11.1) D 04/15/19 08:15 Sodium 139 mmol/L (136-145) 04/15/19 08:15 Potassium 4.3 mmol/L (3.5-5.1) 04/15/19 08:15 Chloride 104 mmol/L (98-107) 04/15/19 08:15 Carbon Dioxide 30 mmol/L (21-32) 04/15/19 08:15 Anion Gap 5 MMOL/L (8-16) L 04/15/19 08:15 BUN 16.7 mg/dL (7-18) 04/15/19 08:15 Creatinine 0.8 mg/dL (0.55-1.3) 04/15/19 08:15 Est GFR (CKD-EPI)AfAm 136.03 04/15/19 08:15 Est GFR (CKD-EPI)NonAf 117.37 04/15/19 08:15 Random Glucose 94 mg/dL (74-106) 04/15/19 08:15 Calcium 8.3 mg/dL (8.5-10.1) L 04/15/19 08:15 Total Bilirubin 0.2 mg/dL (0.2-1) 04/15/19 08:15 AST 17 U/L (15-37) 04/15/19 08:15 ALT 25 U/L (13-61) 04/15/19 08:15 Alkaline Phosphatase 68 U/L (45-117) 04/15/19 08:15 Total Protein 5.9 g/dl (6.4-8.2) L 04/15/19 08:15 Albumin 2.9 g/dl (3.4-5.0) L 04/15/19 08:15 RPR Titer Reactive 1:1 (NONREACTIVE) H 04/15/19 08:15 T.pallidum Ab (MHA) Non reactive (NONREACTIVE) 04/15/19 08:15 lab noted Assessment: 04/16/19 12:37 alcohol and benzo withdrawal sx Plan: continue valium detox regimen
[2019-04-16] MEDS ORDERED: buPROPion HCL 100 MG TABLET PO ONE (14:00)
[2019-04-16] MEDS: CHLORHEXIDINE GLUCONATE 0.12% 15ML CUP MM SCH ×2 (15:26→22:23)
[2019-04-16] MEDS: THIAMINE HCL 100 MG TABLET (FP) PO SCH (22:21)
[2019-04-16] MEDS: diazePAM 5 MG TABLET PO PRN (22:26)
[2019-04-16] MEDS ORDERED: ONDANSETRON *ODT* 4 MG TABLET SL PRN (22:31)
[2019-04-17] MEDS ORDERED: TRIMETHOBENZAMIDE HCL 200MG/2ML INJ IM PRN (00:39)
[2019-04-17] MEDS ORDERED: METHADONE HCL 40 MG DISPERSABLE TABLET ONE (04:01)
[2019-04-17] MEDS ORDERED: METHADONE HCL 10 MG TABLET ONE (04:01)
[2019-04-17] MEDS ORDERED: diazePAM 5 MG TABLET PO ONE (06:00)
[2019-04-17 06:14] VITALS: TEMP 97.8
[2019-04-17] MEDS: METHADONE 40 MG, METHADONE 20 MG PO SCH (06:33)
[2019-04-17] MEDS: GABAPENTIN 400 MG CAPSULE (FP) PO SCH (06:34)
[2019-04-17] MEDS: CHLORHEXIDINE GLUCONATE 0.12% 15ML CUP MM SCH (07:16)
[2019-04-17 09:19] VITALS: BP 109/64; PULSE 74
[2019-04-17] MEDS: PRENATAL VITAMINS W/ FOLIC ACID TABLET (FP) PO SCH (10:19)
[2019-04-17] MEDS: NICOTINE 14 MG/24 HOURS TOPICAL PATCH TD SCH (10:20)
[2019-04-17] MEDS: NICOTINE POLACRILEX 2 MG GUM BUC PRN (10:21)
[2019-04-17] MEDS: diazePAM 5 MG TABLET PO PRN (10:22)
[2019-04-17] MEDS: TOLNAFTATE 1% CREAM 15 GM TUBE TP SCH (10:32)
--- NOTE | 2019-04-17 13:33 | DS ---
[facility] Detox Discharge Summary Admission Date: 04/14/19 Discharge Date: 04/17/19 - History Present History: Alcohol Dependence, Sedative Dependence Additional Comments: 33 years old male admitted on 04/14/19 for alcohol and benzo withdrawal sx management treated with valium detox regimen patient tolerated well patient is alert oriented x 3 cardiac S1S2 regular rate rhythm respiratory clear lung bilaterally on auscultation extremities full range of motion - Physical Exam Results Vital Signs: Vital Signs Temperature 97.8 F 04/17/19 09:18 Pulse Rate 74 04/17/19 09:18 Respiratory Rate 16 04/17/19 09:18 Blood Pressure 109/64 04/17/19 09:18 O2 Sat by Pulse Oximetry (%) Pertinent Admission Physical Exam Findings: alcohol and benzo withdrawal sx Laboratory Last Values WBC 5.1 K/mm3 (4.0-10.0) 04/15/19 08:15 RBC 4.54 M/mm3 (4.00-5.60) 04/15/19 08:15 Hgb 12.9 GM/dL (11.7-16.9) 04/15/19 08:15 Hct 39.7 % (35.4-49) 04/15/19 08:15 MCV 87.5 fl (80-96) 04/15/19 08:15 MCH 28.5 pg (25.7-33.7) 04/15/19 08:15 MCHC 32.6 g/dl (32.0-35.9) 04/15/19 08:15 RDW 13.2 % (11.9-15.9) 04/15/19 08:15 Plt Count 282 K/MM3 (134-434) D 04/15/19 08:15 MPV 8.6 fl (7.5-11.1) D 04/15/19 08:15 Sodium 139 mmol/L (136-145) 04/15/19 08:15 Potassium 4.3 mmol/L (3.5-5.1) 04/15/19 08:15 Chloride 104 mmol/L (98-107) 04/15/19 08:15 Carbon Dioxide 30 mmol/L (21-32) 04/15/19 08:15 Anion Gap 5 MMOL/L (8-16) L 04/15/19 08:15 BUN 16.7 mg/dL (7-18) 04/15/19 08:15 Creatinine 0.8 mg/dL (0.55-1.3) 04/15/19 08:15 Est GFR (CKD-EPI)AfAm 136.03 04/15/19 08:15 Est GFR (CKD-EPI)NonAf 117.37 04/15/19 08:15 Random Glucose 94 mg/dL (74-106) 04/15/19 08:15 Calcium 8.3 mg/dL (8.5-10.1) L 04/15/19 08:15 Total Bilirubin 0.2 mg/dL (0.2-1) 04/15/19 08:15 AST 17 U/L (15-37) 04/15/19 08:15 ALT 25 U/L (13-61) 04/15/19 08:15 Alkaline Phosphatase 68 U/L (45-117) 04/15/19 08:15 Total Protein 5.9 g/dl (6.4-8.2) L 04/15/19 08:15 Albumin 2.9 g/dl (3.4-5.0) L 04/15/19 08:15 RPR Titer Reactive 1:1 (NONREACTIVE) H 04/15/19 08:15 T.pallidum Ab (MHA) Non reactive (NONREACTIVE) 04/15/19 08:15 lab noted - Treatment Hospital Course: Detox Protocol Followed, Detoxed Safely, Responded well, Discharged Condition Good, Rehab Referral Accepted Patient [facility] - Medication Discharge Medications: Ambulatory Orders Gabapentin [Neurontin] 800 mg PO TID 05/25/14 Bupropion HCl [Wellbutrin Sr] 150 mg PO BID 09/09/18 - Diagnosis (1) Alcohol dependence with uncomplicated withdrawal Status: Acute (2) Sedative, hypnotic or anxiolytic dependence with withdrawal, uncomplicated Status: Acute (3) Weight decreased Status: Acute (4) Methadone maintenance therapy patient Status: Chronic (5) Nicotine dependence Status: Acute Qualifiers: Nicotine product type: cigarettes Substance use status: in withdrawal Qualified Code(s): F17.213 - Nicotine dependence, cigarettes, with withdrawal (6) Substance induced mood disorder Status: Suspected - AMA Did Patient Leave Against Medical Advice: No CIWA Score - CIWA Score Nausea/Vomitin-No Nausea/No Vomiting Muscle Tremors: 2 Anxiety: 1-Mildly Anxious Agitation: 1-Slight > Activity Paroxysmal Sweats: No Perspiration Orientation: 0-Oriented Tacttile Disturbances: 0-None Auditory Disturbances: 0-None Visual Disturbances: 0-None Headache: 0-None Present CIWA-Ar Total Score: 4
[2019-04-17] MEDS ORDERED: buPROPion HCL 75 MG TABLET PO SCH (16:00)
== END 2019-04-17 11:43 | disposition other institution (70) | DRG 773 ==
LOC: YASAS 14:28 → Y3N 18:59
PROVIDERS: ADMIT Allergy & Immunology; ATTEND Allergy & Immunology
PROC: HZ2ZZZZ Detoxification Services for Substance Abuse Treatment (ICD-10-PCS; principal; 2019-04-14)
DX: F10.230 Alcohol dependence with withdrawal, uncomplicated (principal); F13.230 Sedative, hypnotic or anxiolytic dependence with withdrawal, uncomplicated; F11.20 Opioid dependence, uncomplicated; F14.20 Cocaine dependence, uncomplicated; F15.20 Other stimulant dependence, uncomplicated; F12.20 Cannabis dependence, uncomplicated; F17.213 Nicotine dependence, cigarettes, with withdrawal; F19.24 Other psychoactive substance dependence with psychoactive substance-induced mood disorder; F25.9 Schizoaffective disorder, unspecified; F90.9 Attention-deficit hyperactivity disorder, unspecified type; G47.00 Insomnia, unspecified; B35.3 Tinea pedis; M14.60 Charcot's joint, unspecified site; R63.4 Abnormal weight loss; Z68.1 Body mass index [BMI] 19.9 or less, adult; Z86.19 Personal history of other infectious and parasitic diseases; Z88.8 Allergy status to other drugs, medicaments and biological substances
CPT/HCPCS: 36415; 80053; 85027; 86593; 86780; 93005; 93010; Q0162

== ENCOUNTER 2019-04-17 11:43 | Inpatient (IN) | payer OTHER ==
[2019-04-17] MEDS ORDERED: MAGNESIUM CITRATE 300 ML BOTTLE PO PRN (13:43)
[2019-04-17] MEDS ORDERED: MENTHOL/PHENOL 1 EACH UD MM PRN (13:43)
[2019-04-17] MEDS ORDERED: LOPERAMIDE HCL 2 MG CAPSULE PO PRN (13:43)
[2019-04-17] MEDS ORDERED: guaiFENesin 200 MG/10 ML 10 ML UNIT-DOSE CUPS PO PRN (13:43)
[2019-04-17] MEDS ORDERED: MAGNESIUM HYDROX 2400MG/30ML ORAL SUSPENSION 30 ML CUP PO PRN (13:43)
--- NOTE | 2019-04-17 13:43 | HP ---
[facility] Rehab Assess/Revision - Admission History Admitted to Rehab from: [facility] Date of Admission to Rehab: 04/17/19 - Vital signs Vital Signs: Vital Signs Period Temp Pulse Resp BP Sys/De Jesus Pulse Ox Last 24 Hr 97.9 F 80 18 107/67 - Findings Detox History & Physical reviewed: Yes Concur with findings: Yes Comments/Additional Findings: transferred from detox to rehab admission as per protocol Inpatient Rehab Admission - Rehab Decision to Admit Inpatient rehab admission?: Yes - Initial Determination Are CD services needed?: Yes Free of communicable disease: Yes Not in need of hospitalization: Yes - Rehab Admission Criteria Previous failed treatment: Yes Poor recovery environment: Yes Comorbidities: Yes Lacks judgement: Yes Patient is meeting Inpatient Rehab admission criteria:: Yes
[2019-04-17] MEDS: TOLNAFTATE 1% CREAM 15 GM TUBE TP SCH ×2 (15:34→21:24)
[2019-04-17] MEDS: GABAPENTIN 400 MG CAPSULE (FP) PO SCH ×2 (15:34→21:24)
[2019-04-17] MEDS: CHLORHEXIDINE GLUCONATE 118 ML MOUTHWASH MM SCH ×2 (15:36→21:24)
[2019-04-17] MEDS ORDERED: PT OWN MED DRAWER 7, Y5N ONE ×2 (15:41→17:28)
[2019-04-17] MEDS ORDERED: NYSTATIN 500,000 UNITS/5 ML SUSPENSION PO ONE (16:02)
--- NOTE | 2019-04-17 16:07 | PN ---
[facility] Progress Note (SOAP) Subjective: C/o white patches on tray Objective: General: no apparent distress HEENTM: white plaques on lateral aspect of tongue Lungs: gael Heart:s1s2 Neuro: CN 2-12 intact 04/17/19 16:05 Assessment: Thrush 04/17/19 16:06 Plan: Nystatin ordered.
[2019-04-17] MEDS: NYSTATIN 500,000 UNITS/5 ML SUSPENSION PO SCH (17:29)
[2019-04-17] MEDS: THIAMINE HCL 100 MG TABLET (FP) PO SCH (21:23)
[2019-04-18] MEDS: MAG HYDROX/AL HYDROX/SIMETH 30 ML UNIT-DOSE CUP PO PRN (01:53)
[2019-04-18] MEDS ORDERED: METHADONE HCL 40 MG DISPERSABLE TABLET ONE (05:05)
[2019-04-18] MEDS ORDERED: METHADONE HCL 10 MG TABLET ONE (05:05)
[2019-04-18] MEDS ORDERED: METHADONE HCL 10 MG TABLET PO SCH (06:00)
[2019-04-18] MEDS: METHADONE 40 MG, METHADONE 20 MG PO SCH (06:32)
[2019-04-18] MEDS: GABAPENTIN 400 MG CAPSULE (FP) PO SCH ×3 (06:33→21:31)
[2019-04-18] MEDS: CHLORHEXIDINE GLUCONATE 118 ML MOUTHWASH MM SCH ×3 (06:35→21:30)
[2019-04-18] MEDS: NYSTATIN 500,000 UNITS/5 ML SUSPENSION PO SCH ×4 (06:35→17:03)
[2019-04-18] MEDS ORDERED: PT OWN MED DRAWER 7, Y5N ONE (08:48)
--- NOTE | 2019-04-18 10:01 | PN ---
[facility] Progress Note Note: Pt requesting cane- ordered
[2019-04-18] MEDS: PRENATAL VITAMINS W/ FOLIC ACID TABLET (FP) PO SCH (10:45)
[2019-04-18] MEDS: buPROPion HCL 75 MG TABLET PO SCH ×2 (10:45→16:49)
[2019-04-18] MEDS: TOLNAFTATE 1% CREAM 15 GM TUBE TP SCH ×2 (10:49→21:31)
[2019-04-18] MEDS ORDERED: FLU VACCINE QUAD 60 MCG/0.5 ML (MDV 19-20) IM ONE (12:18)
[2019-04-18] MEDS ORDERED: buPROPion HCL 75 MG TABLET PO SCH (16:00)
--- NOTE | 2019-04-18 16:42 | CONSULT ---
[facility] Psychiatric Consult - Data Date of interview: 04/18/19 Admission source: [facility]
[2019-04-18] MEDS: IBUPROFEN 400 MG TABLET (FP) PO PRN (17:21)
[2019-04-18] MEDS: THIAMINE HCL 100 MG TABLET (FP) PO SCH (21:30)
[2019-04-18] MEDS: MELATONIN 5 MG TABLETS PO PRN (21:31)
[2019-04-19] MEDS: NYSTATIN 500,000 UNITS/5 ML SUSPENSION PO SCH ×4 (00:15→17:18)
[2019-04-19] MEDS ORDERED: METHADONE HCL 40 MG DISPERSABLE TABLET ONE (06:22)
[2019-04-19] MEDS ORDERED: METHADONE HCL 10 MG TABLET ONE (06:22)
[2019-04-19] MEDS: METHADONE 40 MG, METHADONE 20 MG PO SCH (06:25)
[2019-04-19] MEDS: CHLORHEXIDINE GLUCONATE 118 ML MOUTHWASH MM SCH ×3 (06:27→21:13)
[2019-04-19] MEDS: GABAPENTIN 400 MG CAPSULE (FP) PO SCH ×3 (06:27→21:13)
[2019-04-19] MEDS: PRENATAL VITAMINS W/ FOLIC ACID TABLET (FP) PO SCH (10:18)
[2019-04-19] MEDS: buPROPion HCL 75 MG TABLET PO SCH ×2 (10:18→16:46)
[2019-04-19] MEDS: TOLNAFTATE 1% CREAM 15 GM TUBE TP SCH ×2 (10:18→21:13)
[2019-04-19] MEDS: NICOTINE POLACRILEX 2 MG GUM BUC PRN (16:49)
[2019-04-19] MEDS: MELATONIN 5 MG TABLETS PO PRN (21:12)
[2019-04-19] MEDS: THIAMINE HCL 100 MG TABLET (FP) PO SCH (21:12)
[2019-04-20] MEDS: NYSTATIN 500,000 UNITS/5 ML SUSPENSION PO SCH ×5 (00:47→23:45)
[2019-04-20] MEDS: CHLORHEXIDINE GLUCONATE 118 ML MOUTHWASH MM SCH ×3 (05:52→21:29)
[2019-04-20] MEDS: GABAPENTIN 400 MG CAPSULE (FP) PO SCH ×3 (05:52→21:28)
[2019-04-20] MEDS ORDERED: METHADONE HCL 10 MG TABLET ONE (05:54)
[2019-04-20] MEDS ORDERED: METHADONE HCL 40 MG DISPERSABLE TABLET ONE (05:55)
[2019-04-20] MEDS: METHADONE 40 MG, METHADONE 20 MG PO SCH (05:55)
[2019-04-20] MEDS: PRENATAL VITAMINS W/ FOLIC ACID TABLET (FP) PO SCH (10:20)
[2019-04-20] MEDS: TOLNAFTATE 1% CREAM 15 GM TUBE TP SCH ×2 (10:20→21:29)
[2019-04-20] MEDS: buPROPion HCL 75 MG TABLET PO SCH ×2 (10:20→16:01)
[2019-04-20] MEDS: NICOTINE 14 MG/24 HOURS TOPICAL PATCH TD PRN (12:59)
[2019-04-20] MEDS: NICOTINE POLACRILEX 2 MG GUM BUC PRN (12:59)
[2019-04-20] MEDS: THIAMINE HCL 100 MG TABLET (FP) PO SCH (21:28)
[2019-04-20] MEDS: MELATONIN 5 MG TABLETS PO PRN (21:29)
[2019-04-21] MEDS ORDERED: METHADONE HCL 10 MG TABLET ONE (05:33)
[2019-04-21] MEDS ORDERED: METHADONE HCL 40 MG DISPERSABLE TABLET ONE (05:33)
[2019-04-21] MEDS: METHADONE 40 MG, METHADONE 20 MG PO SCH (06:09)
[2019-04-21] MEDS: GABAPENTIN 400 MG CAPSULE (FP) PO SCH ×3 (06:09→21:41)
[2019-04-21] MEDS: NYSTATIN 500,000 UNITS/5 ML SUSPENSION PO SCH ×4 (06:10→23:45)
[2019-04-21] MEDS: CHLORHEXIDINE GLUCONATE 118 ML MOUTHWASH MM SCH ×3 (06:48→22:36)
[2019-04-21] MEDS: PRENATAL VITAMINS W/ FOLIC ACID TABLET (FP) PO SCH (11:00)
[2019-04-21] MEDS: TOLNAFTATE 1% CREAM 15 GM TUBE TP SCH ×2 (11:01→21:40)
[2019-04-21] MEDS: buPROPion HCL 75 MG TABLET PO SCH ×2 (14:29→17:00)
[2019-04-21] MEDS ORDERED: PT OWN MED DRAWER 7, Y5N ONE (14:45)
[2019-04-21] MEDS: THIAMINE HCL 100 MG TABLET (FP) PO SCH (21:41)
[2019-04-21] MEDS: MELATONIN 5 MG TABLETS PO PRN (21:42)
[2019-04-22] MEDS ORDERED: METHADONE HCL 10 MG TABLET ONE (05:07)
[2019-04-22] MEDS ORDERED: METHADONE HCL 40 MG DISPERSABLE TABLET ONE (05:07)
[2019-04-22] MEDS: CHLORHEXIDINE GLUCONATE 118 ML MOUTHWASH MM SCH ×3 (06:00→21:19)
[2019-04-22] MEDS: METHADONE 40 MG, METHADONE 20 MG PO SCH (06:23)
[2019-04-22] MEDS: GABAPENTIN 400 MG CAPSULE (FP) PO SCH ×3 (06:24→21:19)
[2019-04-22] MEDS: NYSTATIN 500,000 UNITS/5 ML SUSPENSION PO SCH ×4 (06:24→23:42)
[2019-04-22] MEDS: MAG HYDROX/AL HYDROX/SIMETH 30 ML UNIT-DOSE CUP PO PRN (08:21)
[2019-04-22] MEDS: buPROPion HCL 75 MG TABLET PO SCH ×2 (10:27→16:25)
[2019-04-22] MEDS: PRENATAL VITAMINS W/ FOLIC ACID TABLET (FP) PO SCH (10:27)
[2019-04-22] MEDS: TOLNAFTATE 1% CREAM 15 GM TUBE TP SCH ×2 (10:28→21:39)
[2019-04-22] MEDS: NICOTINE POLACRILEX 2 MG GUM BUC PRN (13:51)
[2019-04-22] MEDS: IBUPROFEN 400 MG TABLET (FP) PO PRN (15:56)
[2019-04-22] MEDS: P-EPHED 60MG/TRIPROLIDI 2.5MG TABLET PO PRN (15:58)
[2019-04-22] MEDS: THIAMINE HCL 100 MG TABLET (FP) PO SCH (21:19)
[2019-04-23] MEDS ORDERED: METHADONE HCL 40 MG DISPERSABLE TABLET ONE (05:14)
[2019-04-23] MEDS ORDERED: METHADONE HCL 10 MG TABLET ONE (05:14)
[2019-04-23] MEDS: CHLORHEXIDINE GLUCONATE 118 ML MOUTHWASH MM SCH ×3 (06:07→21:30)
[2019-04-23] MEDS: METHADONE 40 MG, METHADONE 20 MG PO SCH (06:07)
[2019-04-23] MEDS: GABAPENTIN 400 MG CAPSULE (FP) PO SCH ×3 (06:07→21:29)
[2019-04-23] MEDS: NYSTATIN 500,000 UNITS/5 ML SUSPENSION PO SCH ×4 (06:07→23:53)
[2019-04-23] MEDS ORDERED: PT OWN MED DRAWER 7, Y5N ONE ×2 (08:47→12:06)
[2019-04-23] MEDS: PRENATAL VITAMINS W/ FOLIC ACID TABLET (FP) PO SCH (10:00)
[2019-04-23] MEDS: buPROPion HCL 75 MG TABLET PO SCH ×2 (10:00→16:15)
[2019-04-23] MEDS: TOLNAFTATE 1% CREAM 15 GM TUBE TP SCH ×2 (10:01→21:30)
[2019-04-23] MEDS: MAG HYDROX/AL HYDROX/SIMETH 30 ML UNIT-DOSE CUP PO PRN (12:07)
[2019-04-23] MEDS: THIAMINE HCL 100 MG TABLET (FP) PO SCH (21:29)
[2019-04-24] MEDS ORDERED: METHADONE HCL 10 MG TABLET PO SCH (06:00)
[2019-04-24] MEDS ORDERED: METHADONE HCL 40 MG DISPERSABLE TABLET ONE (06:02)
[2019-04-24] MEDS ORDERED: METHADONE HCL 10 MG TABLET ONE (06:02)
[2019-04-24] MEDS: METHADONE 40 MG, METHADONE 20 MG PO SCH (06:32)
[2019-04-24] MEDS: GABAPENTIN 400 MG CAPSULE (FP) PO SCH ×3 (06:33→21:16)
[2019-04-24] MEDS: NYSTATIN 500,000 UNITS/5 ML SUSPENSION PO SCH ×2 (06:34→14:16)
[2019-04-24] MEDS: CHLORHEXIDINE GLUCONATE 118 ML MOUTHWASH MM SCH ×3 (06:34→21:17)
[2019-04-24] MEDS: PRENATAL VITAMINS W/ FOLIC ACID TABLET (FP) PO SCH (10:11)
[2019-04-24] MEDS: TOLNAFTATE 1% CREAM 15 GM TUBE TP SCH ×2 (10:11→21:17)
[2019-04-24] MEDS: buPROPion HCL 75 MG TABLET PO SCH ×2 (10:11→16:25)
[2019-04-24] MEDS: NICOTINE POLACRILEX 2 MG GUM BUC PRN ×2 (11:16→18:50)
[2019-04-24] MEDS: NICOTINE 14 MG/24 HOURS TOPICAL PATCH TD PRN (11:16)
--- NOTE | 2019-04-24 15:32 | PN ---
[facility] Progress Note Note: Vital Signs Temperature 97.8 F 04/24/19 07:10 Pulse Rate 80 04/24/19 07:10 Respiratory Rate 18 04/24/19 07:10 Blood Pressure 108/63 04/24/19 07:10 O2 Sat by Pulse Oximetry (%) c/o of oral thrush without symptom with PO nystatin solution meds changed to diflucan 100 mg PO x 5 days increase fluids continue to monitor
[2019-04-24] MEDS: FLUCONAZOLE 100 MG TABLET (UD) PO SCH (16:25)
[2019-04-24] MEDS: IBUPROFEN 400 MG TABLET (FP) PO PRN (16:25)
[2019-04-24] MEDS: MELATONIN 5 MG TABLETS PO PRN (21:16)
[2019-04-24] MEDS: THIAMINE HCL 100 MG TABLET (FP) PO SCH (21:16)
[2019-04-25] MEDS ORDERED: METHADONE HCL 10 MG TABLET ONE (06:00)
[2019-04-25] MEDS ORDERED: METHADONE HCL 40 MG DISPERSABLE TABLET ONE (06:00)
[2019-04-25] MEDS: GABAPENTIN 400 MG CAPSULE (FP) PO SCH ×3 (06:04→21:15)
[2019-04-25] MEDS: METHADONE 40 MG, METHADONE 20 MG PO SCH (06:04)
[2019-04-25] MEDS: CHLORHEXIDINE GLUCONATE 118 ML MOUTHWASH MM SCH ×3 (06:06→21:15)
[2019-04-25] MEDS: PRENATAL VITAMINS W/ FOLIC ACID TABLET (FP) PO SCH (09:48)
[2019-04-25] MEDS: FLUCONAZOLE 100 MG TABLET (UD) PO SCH (09:48)
[2019-04-25] MEDS: buPROPion HCL 75 MG TABLET PO SCH (09:49)
[2019-04-25] MEDS: TOLNAFTATE 1% CREAM 15 GM TUBE TP SCH ×2 (09:49→21:16)
[2019-04-25] MEDS: MAG HYDROX/AL HYDROX/SIMETH 30 ML UNIT-DOSE CUP PO PRN (11:01)
[2019-04-25] MEDS: IBUPROFEN 400 MG TABLET (FP) PO PRN (11:02)
[2019-04-25] MEDS ORDERED: buPROPion HCL 75 MG TABLET PO ONE (17:00)
[2019-04-25] MEDS: MELATONIN 5 MG TABLETS PO PRN (21:15)
[2019-04-25] MEDS: THIAMINE HCL 100 MG TABLET (FP) PO SCH (21:15)
[2019-04-26] MEDS ORDERED: METHADONE HCL 40 MG DISPERSABLE TABLET ONE (05:32)
[2019-04-26] MEDS ORDERED: METHADONE HCL 10 MG TABLET ONE (05:32)
[2019-04-26] MEDS: ACETAMINOPHEN 325 MG TABLET (FP) PO PRN (06:35)
[2019-04-26] MEDS: P-EPHED 60MG/TRIPROLIDI 2.5MG TABLET PO PRN (06:35)
[2019-04-26] MEDS: METHADONE 40 MG, METHADONE 20 MG PO SCH (06:36)
[2019-04-26] MEDS: GABAPENTIN 400 MG CAPSULE (FP) PO SCH ×3 (06:36→21:25)
[2019-04-26] MEDS: CHLORHEXIDINE GLUCONATE 118 ML MOUTHWASH MM SCH ×3 (06:39→22:43)
[2019-04-26] MEDS ORDERED: PT OWN MED DRAWER 7, Y5N ONE (09:26)
[2019-04-26] MEDS: FLUCONAZOLE 100 MG TABLET (UD) PO SCH (10:37)
[2019-04-26] MEDS: PRENATAL VITAMINS W/ FOLIC ACID TABLET (FP) PO SCH (10:37)
[2019-04-26] MEDS: TOLNAFTATE 1% CREAM 15 GM TUBE TP SCH ×2 (10:38→21:25)
[2019-04-26] MEDS: MAG HYDROX/AL HYDROX/SIMETH 30 ML UNIT-DOSE CUP PO PRN (10:47)
[2019-04-26] MEDS: THIAMINE HCL 100 MG TABLET (FP) PO SCH (21:23)
[2019-04-27] MEDS ORDERED: METHADONE HCL 40 MG DISPERSABLE TABLET ONE (05:14)
[2019-04-27] MEDS ORDERED: METHADONE HCL 10 MG TABLET ONE (05:14)
[2019-04-27] MEDS: CHLORHEXIDINE GLUCONATE 118 ML MOUTHWASH MM SCH ×3 (06:21→21:22)
[2019-04-27] MEDS: GABAPENTIN 400 MG CAPSULE (FP) PO SCH ×3 (06:22→21:21)
[2019-04-27] MEDS: METHADONE 40 MG, METHADONE 20 MG PO SCH (06:22)
[2019-04-27] MEDS: FLUCONAZOLE 100 MG TABLET (UD) PO SCH (09:32)
[2019-04-27] MEDS: PRENATAL VITAMINS W/ FOLIC ACID TABLET (FP) PO SCH (09:32)
[2019-04-27] MEDS: NICOTINE 14 MG/24 HOURS TOPICAL PATCH TD PRN (09:33)
[2019-04-27] MEDS: NICOTINE POLACRILEX 2 MG GUM BUC PRN (09:33)
[2019-04-27] MEDS: TOLNAFTATE 1% CREAM 15 GM TUBE TP SCH ×2 (09:33→21:30)
[2019-04-27] MEDS: THIAMINE HCL 100 MG TABLET (FP) PO SCH (21:21)
[2019-04-27] MEDS: MELATONIN 5 MG TABLETS PO PRN (21:22)
[2019-04-28] MEDS ORDERED: METHADONE HCL 10 MG TABLET ONE (06:02)
[2019-04-28] MEDS ORDERED: METHADONE HCL 40 MG DISPERSABLE TABLET ONE (06:02)
[2019-04-28] MEDS: METHADONE 40 MG, METHADONE 20 MG PO SCH (06:27)
[2019-04-28] MEDS: GABAPENTIN 400 MG CAPSULE (FP) PO SCH ×3 (06:27→21:34)
[2019-04-28] MEDS: CHLORHEXIDINE GLUCONATE 118 ML MOUTHWASH MM SCH ×3 (06:28→21:35)
[2019-04-28] MEDS: IBUPROFEN 400 MG TABLET (FP) PO PRN (06:29)
[2019-04-28] MEDS: FLUCONAZOLE 100 MG TABLET (UD) PO SCH (09:50)
[2019-04-28] MEDS: NICOTINE POLACRILEX 2 MG GUM BUC PRN (09:51)
[2019-04-28] MEDS: TOLNAFTATE 1% CREAM 15 GM TUBE TP SCH ×2 (10:44→21:35)
[2019-04-28] MEDS: PRENATAL VITAMINS W/ FOLIC ACID TABLET (FP) PO SCH (10:44)
[2019-04-28] MEDS ORDERED: FLU VACCINE QUAD 60 MCG/0.5 ML (MDV 19-20) IM ONE (12:00)
[2019-04-28] MEDS: MELATONIN 5 MG TABLETS PO PRN (21:34)
[2019-04-28] MEDS: THIAMINE HCL 100 MG TABLET (FP) PO SCH (21:34)
[2019-04-29] MEDS: CHLORHEXIDINE GLUCONATE 118 ML MOUTHWASH MM SCH ×3 (06:16→21:26)
[2019-04-29] MEDS: GABAPENTIN 400 MG CAPSULE (FP) PO SCH ×3 (06:16→21:25)
[2019-04-29] MEDS ORDERED: METHADONE HCL 10 MG TABLET ONE (06:17)
[2019-04-29] MEDS ORDERED: METHADONE HCL 40 MG DISPERSABLE TABLET ONE (06:17)
[2019-04-29] MEDS: METHADONE 40 MG, METHADONE 20 MG PO SCH (06:17)
[2019-04-29] MEDS ORDERED: PT OWN MED DRAWER 7, Y5N ONE (08:29)
[2019-04-29] MEDS: PRENATAL VITAMINS W/ FOLIC ACID TABLET (FP) PO SCH (09:28)
[2019-04-29] MEDS: TOLNAFTATE 1% CREAM 15 GM TUBE TP SCH ×2 (09:28→21:26)
[2019-04-29] MEDS ORDERED: CYCLOBENZAPRINE HCL 10 MG TABLET (FP) PO PRN (11:51)
--- NOTE | 2019-04-29 13:10 | PN ---
[facility] Progress Note Note: Pt requesting Flexeril for muscle relaxation. However, the pharmacist, Mr. Figueredo informed staff of pt's carbamazepine allergy and flexeril interractions. Pt has been reminded cannot order flexeril. However, pharmacist verified Robaxin can be used instead. Vital Signs - 24 hr 04/29/19 04/29/19 04/29/19 00:30 03:30 06:59 Temperature 97.5 F L Pulse Rate 70 Respiratory 18 17 18 Rate Blood Pressure 105/55 L Robaxin 500 mg po tid prn
[2019-04-29] MEDS: IBUPROFEN 400 MG TABLET (FP) PO PRN (15:38)
[2019-04-29] MEDS: MELATONIN 5 MG TABLETS PO PRN (21:25)
[2019-04-29] MEDS: THIAMINE HCL 100 MG TABLET (FP) PO SCH (21:25)
[2019-04-30] MEDS ORDERED: METHADONE HCL 10 MG TABLET ONE (05:11)
[2019-04-30] MEDS ORDERED: METHADONE HCL 40 MG DISPERSABLE TABLET ONE (05:11)
[2019-04-30] MEDS: GABAPENTIN 400 MG CAPSULE (FP) PO SCH ×3 (05:52→21:35)
[2019-04-30] MEDS: METHADONE 40 MG, METHADONE 20 MG PO SCH (05:52)
[2019-04-30] MEDS: CHLORHEXIDINE GLUCONATE 118 ML MOUTHWASH MM SCH ×3 (05:54→21:35)
[2019-04-30] MEDS ORDERED: METHADONE HCL 10 MG TABLET PO SCH (06:00)
[2019-04-30 07:13] VITALS: PULSE 69
[2019-04-30] MEDS: TOLNAFTATE 1% CREAM 15 GM TUBE TP SCH ×2 (09:25→21:36)
[2019-04-30] MEDS: PRENATAL VITAMINS W/ FOLIC ACID TABLET (FP) PO SCH (09:25)
[2019-04-30] MEDS: METHOCARBAMOL 500 MG TABLET PO PRN ×2 (11:16→21:36)
[2019-04-30] MEDS ORDERED: PT OWN MED DRAWER 7, Y5N ONE (13:40)
[2019-04-30] MEDS: THIAMINE HCL 100 MG TABLET (FP) PO SCH (21:35)
[2019-04-30] MEDS: MELATONIN 5 MG TABLETS PO PRN (21:35)
[2019-04-30] MEDS: ACETAMINOPHEN 325 MG TABLET (FP) PO PRN (21:36)
[2019-05-01] MEDS ORDERED: METHADONE HCL 40 MG DISPERSABLE TABLET ONE (05:23)
[2019-05-01] MEDS ORDERED: METHADONE HCL 10 MG TABLET ONE (05:23)
[2019-05-01] MEDS: GABAPENTIN 400 MG CAPSULE (FP) PO SCH ×2 (06:12→13:42)
[2019-05-01] MEDS: METHADONE 40 MG, METHADONE 20 MG PO SCH (06:12)
[2019-05-01] MEDS: CHLORHEXIDINE GLUCONATE 118 ML MOUTHWASH MM SCH ×2 (06:12→13:43)
[2019-05-01] MEDS: ACETAMINOPHEN 325 MG TABLET (FP) PO PRN (06:15)
[2019-05-01] MEDS: METHOCARBAMOL 500 MG TABLET PO PRN (06:15)
[2019-05-01 06:49] VITALS: BP 115/64; TEMP 97.6
[2019-05-01] MEDS: TOLNAFTATE 1% CREAM 15 GM TUBE TP SCH (09:59)
[2019-05-01] MEDS: PRENATAL VITAMINS W/ FOLIC ACID TABLET (FP) PO SCH (09:59)
--- NOTE | 2019-05-01 14:47 | DS ---
[facility] Rehab Discharge Summary - [facility] Rehab Discharge Summary Admission Date: 04/17/19 Discharge Date: 05/01/19 - History Present History: Alcohol dependence, MMTP, Opioid dependence Pertinent Past History: 33 y.o. man with an extensive history of alcohol, benzodiazepine, Xanax, crystal meth dependence. He has had multiple admissons here for detox with the last being from 09/10/18 to 09/12/18. Longest period of drug and alcohol abstinence has been 90 days. He reports he is enrolled at [facility] - Discharge Physical Exam Vital Signs: Vital Signs Temperature 97.6 F 05/01/19 06:48 Pulse Rate 69 05/01/19 06:48 Respiratory Rate 18 05/01/19 06:48 Blood Pressure 115/64 05/01/19 06:48 O2 Sat by Pulse Oximetry (%) Pertinent Admission Physical Exam Findings: Physical General Appearance: No apparent distress HEENTM: Normocephalic, Respiratory:Lungs Clear, Neck: supple Cardiology: s1 s2 Abdominal: +BS, Non Tender, Flat Musculoskeletal: Gait Steady, full weight bearing, Full ROM Neurological: CN 2-12 intact - Treatment Discharge Condition: Outpatient referral accepted (Medically stable for discharge. Patient will go to [facility]) Hospital Course: Patient attended group, had 1:1 meetings with his counselor. He was seen by the psychiatric service, had minor medical issues that were resolved, specifically oral thrush. He was adherent to his treatment plan and medication regimen. - Medication Discharge Medications: Ambulatory Orders Gabapentin [Neurontin] 800 mg PO TID 05/25/14 Bupropion HCl [Wellbutrin Sr] 150 mg PO BID 09/09/18 Gabapentin [Neurontin -] 800 mg PO TID #20 capsule 05/01/19 - Medication-Assisted Treatment (MAT) Medication-Assisted Treatment (MAT): Yes MAT Follow-up Referral: MMTP at [facility]. - Discharge Instructions Diet, activity, other medical instructions: Diet: as tolerated Activity: as tolerate Other medical instructions: Please follow up with aftercare referral. - Diagnosis (1) Alcohol dependence Current Visit: No Status: Acute (2) Opioid dependence with withdrawal Current Visit: No Status: Chronic (3) Benzodiazepine dependence Current Visit: No Status: Chronic (4) Opioid use disorder Current Visit: No Status: Chronic - Follow-up Referral Minutes to complete discharge: 20 - AMA Did Patient Leave Against Medical Advice: No
== END 2019-05-01 16:10 | disposition home or self-care (01) | DRG 772 ==
LOC: YASAS 11:43 → Y3W 11:44
PROVIDERS: ADMIT Neuromusculoskeletal Medicine & OMM; ATTEND Neuromusculoskeletal Medicine & OMM
PROC: HZ42ZZZ Group Counseling for Substance Abuse Treatment, Cognitive-Behavioral (ICD-10-PCS; principal; 2019-04-17)
DX: F11.20 Opioid dependence, uncomplicated (principal); F10.20 Alcohol dependence, uncomplicated; F13.20 Sedative, hypnotic or anxiolytic dependence, uncomplicated; F14.20 Cocaine dependence, uncomplicated; F12.20 Cannabis dependence, uncomplicated; F17.210 Nicotine dependence, cigarettes, uncomplicated; B37.0 Candidal stomatitis; Z87.438 Personal history of other diseases of male genital organs; Z88.8 Allergy status to other drugs, medicaments and biological substances
CPT/HCPCS: 36415; 87389; Q2036